=== PATIENT | male | born 1970 | race Caucasian/White ===

== ENCOUNTER 2017-08-23 13:32 | Observation (INO) ==
[2017-08-23] MEDS ORDERED: SODIUM CHLORIDE 0.9% 1,000 ML IV STA (14:49)
[2017-08-23] MEDS ORDERED: ONDANSETRON 4 MG/2 ML VIAL IV STA (14:50)
[2017-08-23] MEDS ORDERED: INSULIN REGULAR 100 UNIT/ML IV STA (14:50)
[2017-08-23] MEDS ORDERED: ONDANSETRON 4 MG/2 ML VIAL ONE (14:53)
[2017-08-23] MEDS ORDERED: INSULIN NPH/REGULAR 70/30 100 UNIT/ML SUBCUT ONE (14:54)
[2017-08-23 14:59] LABS: Basophils # 0.1 10*3/uL (0.0-0.2); Basophils % 0.9 % (0.0-0.8); Eosinophils # 0.1 10*3/uL (0.0-0.87); Hematocrit 52.4 VOL% (42.0-52.0); Hemoglobin 18.2 GM/DL (14.0-18.0); Immature Granulocytes % 0.5 %; Immature Granulocytes Absolute 0.03 #; Lymphocytes # 1.3 10*3/uL (1.4-4.0); Lymphocytes % 22.7 % (21.2-54.2); Mean Corpuscular HGB Conc 34.7 GM/DL (32-36); Mean Corpuscular Hemoglobin 29 PG (27-34); Mean Corpuscular Volume 83.2 FL (87-102); Mean Platelet Volume 11.3 FL (9.6-12.0); Monocytes # 0.9 10*3/uL (0.11-0.8); Monocytes % 15.3 % (1.7-12.7); Neutrophils # 3.5 10*3/uL (1.4-7.4); Neutrophils % 59.6 % (38.7-73.9); Platelet Count 220 T/CUMM (130-400); Red Cell Distribution Width 12.7 % (9.3-17.3); White Blood Count 5.8 T/CUMM (4-12)
[2017-08-23 15:14] LABS: Apearance,Urine Slightly Hazy (Clear); Bilirubin,Urine Negative (Negative); Blood, Urine Negative (Negative); Glucose,Urine (UA) >=500 mg/dL (Negative); Ketones,Urine Negative (Negative); Mucus,Urine Occasional /LPF (Occasional); Nitrite,Urine Negative (Negative); Protein,Urine Negative; RBC,Urine 2 /HPF (0-4); Squamous Epithelial Cell,Urine Occasional /HPF (0-10); Urine Color Yellow (Yellow); Urine Specific Gravity 1.028 (1.001-1.035); Urine Urobilinogen < 2.0 EU/DL (0.2-1.0); WBC,Urine 10 /HPF (0-6)
[2017-08-23 15:28] LABS: Albumin 4.7 G/DL (3.4-5.0); Bilirubin,Total 1.3 MG/DL (0.2-1.0); Calcium 9.6 MG/DL (8.5-10.1); Osmolality,Calculated 278.1 MOS/KG (273-304); Potassium 3.8 MMOL/L (3.5-5.1); Total Protein 9.2 G/DL (6.4-8.3)
[2017-08-23 16:04] LABS: ABG Base Excess -3.9 MMOL/L (-2.5-2.5); ABG HCO3 18.4 MMOL/L (20-26); ABG Oxygen Saturation 92.9 % (95-100); ABG PCO2 27.7 MM HG (35-48); ABG PO2 66.5 MM HG (80-95); ABG TCO2 19.2 MMOL/L (23-27)
[2017-08-23] MEDS ORDERED: GLUCAGON 1 MG VIAL IM PRN (16:46)
[2017-08-23] MEDS ORDERED: traZODone 50 MG TABLET PO PRN (16:46)
[2017-08-23] MEDS ORDERED: DEXTROSE 50% 25 GM/50 ML VIAL IV PRN (16:46)
[2017-08-23] MEDS ORDERED: LOPERAMIDE 2 MG CAPSULE PO PRN (16:49)
[2017-08-23] MEDS ORDERED: ENOXAPARIN 40 MG/0.4 ML SYRINGE SUBCUT SCH (17:00)
[2017-08-23] MEDS ORDERED: cefTRIAXone 2,000 MG in SYRINGE 1 EACH IV ONE (17:00)
[2017-08-23] MEDS: SODIUM CHLORIDE 0.9% 1,000 ML IV SCH (18:00)
[2017-08-23] MEDS: INSULIN NPH/REGULAR 70/30 100 UNIT/ML SUBCUT SCH (18:20)
[2017-08-23] MEDS: ONDANSETRON 4 MG/2 ML VIAL IV PRN ×2 (18:21→22:13)
[2017-08-23] MEDS: INSULIN REGULAR 100 UNIT/ML SUBCUT SCH (22:02)
[2017-08-24] MEDS: SODIUM CHLORIDE 0.9% 1,000 ML IV SCH ×2 (02:31→09:00)
[2017-08-24 05:38] LABS: Basophils % 0.4 % (0.0-0.8); Eosinophils # 0.1 10*3/uL (0.0-0.87); Eosinophils % 2.9 % (0.00-10.9); Hematocrit 44.4 VOL% (42.0-52.0); Hemoglobin 14.9 GM/DL (14.0-18.0); Immature Granulocytes % 0.4 %; Immature Granulocytes Absolute 0.02 #; Lymphocytes # 1.9 10*3/uL (1.4-4.0); Lymphocytes % 39.3 % (21.2-54.2); Mean Corpuscular HGB Conc 33.6 GM/DL (32-36); Mean Corpuscular Hemoglobin 29 PG (27-34); Mean Corpuscular Volume 85.1 FL (87-102); Monocytes # 0.8 10*3/uL (0.11-0.8); Monocytes % 15.8 % (1.7-12.7); Neutrophils % 41.2 % (38.7-73.9); Platelet Count 179 T/CUMM (130-400); Red Blood Count 5.22 MC/CUMM (3.8-5.5); Red Cell Distribution Width 12.6 % (9.3-17.3); White Blood Count 4.9 T/CUMM (4-12)
[2017-08-24 06:21] LABS: Albumin 3.5 G/DL (3.4-5.0); Calcium 8.1 MG/DL (8.5-10.1); Osmolality,Calculated 282.5 MOS/KG (273-304); Potassium 3.3 MMOL/L (3.5-5.1); Risk Ratio 6.25; Total Protein 6.4 G/DL (6.4-8.3); VLDL CHOLESTEROL 102.6 MG/DL
[2017-08-24 06:25] LABS: Eosinophils 3 % (0-10); Hypochromasia Slight; Lymphocytes 36 % (20-55); Platelet Estimate Adequate; Segmented Neutrophils 51 % (50-85); Total Cells Counted 100
[2017-08-24] MEDS: ONDANSETRON 4 MG/2 ML VIAL IV PRN (06:36)
[2017-08-24] MEDS: INSULIN REGULAR 100 UNIT/ML SUBCUT SCH ×2 (08:57→11:37)
[2017-08-24] MEDS: INSULIN NPH/REGULAR 70/30 100 UNIT/ML SUBCUT SCH (08:57)
[2017-08-24 11:32] VITALS: BP 125/82
== END 2017-08-24 12:57 | disposition home or self-care (01) ==
LOC: N.EDINP 13:32 → N.ED 13:32 → N.2E 16:45
PROVIDERS: ADMIT Internal Medicine; ATTEND Internal Medicine

== ENCOUNTER 2020-05-31 17:37 | Inpatient (IN) ==
[~2020-05-31 17:37] MED LIST: ENOXAPARIN 30 MG/0.3 ML SYRINGE SUBCUT ONE; LIDOCAINE 1% 20 ML VIAL MISC INJ ONE; MIDAZOLAM 2 MG/2 ML VIAL IV ONE; PROMETHAZINE 25 MG/1 ML VIAL IV ONE; TICAGRELOR 90 MG TABLET PO ONE; TIROFIBAN 5,000 MCG/100 ML PREMIX IV ONE; fentaNYL 100 MCG/2 ML VIAL IV ONE
[2020-05-31] MEDS ORDERED: TIROFIBAN 5,000 MCG/100 ML PREMIX IV SCH (17:57)
[2020-05-31] MEDS ORDERED: hydrALAZINE 20 MG/1 ML VIAL ONE (18:17)
[2020-05-31] MEDS ORDERED: NITROGLYCERIN SL 0.4 MG TABLET SL PRN (18:26)
[2020-05-31] MEDS ORDERED: ACETAMINOPHEN 325 MG TABLET PO PRN (18:26)
[2020-05-31] MEDS ORDERED: ONDANSETRON 4 MG/2 ML VIAL IV PRN (18:26)
[2020-05-31] MEDS ORDERED: SODIUM CHLORIDE 0.9% 1,000 ML IV SCH (18:30)
[2020-05-31] MEDS ORDERED: DEXTROSE 50% 25 GM/50 ML VIAL IV PRN (18:31)
[2020-05-31] MEDS ORDERED: GLUCAGON 1 MG VIAL IM PRN (18:31)
[2020-05-31] MEDS ORDERED: hydrALAZINE 20 MG/1 ML VIAL IV PRN (19:16)
[2020-05-31 20:03] LABS: Basophils # 0.1 10*3/uL (0.0-0.2); Basophils % 0.5 % (0.0-0.8); Eosinophils % 0.2 % (0.00-10.9); Hematocrit 44.7 VOL% (42.0-52.0); Immature Granulocytes % 0.5 %; Immature Granulocytes Absolute 0.06 #; Lymphocytes # 0.9 10*3/uL (1.4-4.0); Lymphocytes % 7.5 % (21.2-54.2); Mean Corpuscular HGB Conc 33.6 GM/DL (32-36); Mean Corpuscular Volume 86.6 FL (87-102); Mean Platelet Volume 10.8 FL (9.6-12.0); Monocytes % 6.5 % (1.7-12.7); Neutrophils % 84.8 % (38.7-73.9); Platelet Count 158 T/CUMM (130-400); Red Blood Count 5.16 MC/CUMM (3.8-5.5); Red Cell Distribution Width 11.7 % (9.3-17.3); White Blood Count 12.2 T/CUMM (4-12)
[2020-05-31] MEDS: HYDROmorphone 2 MG/1 ML VIAL IV PRN (20:04)
[2020-05-31 20:35] LABS: Troponin I 37.6 NG/ML (0.00-0.045)
[2020-05-31] MEDS: ATORVASTATIN 40 MG TABLET PO SCH (21:07)
[2020-05-31] MEDS: TICAGRELOR 90 MG TABLET PO SCH (21:07)
[2020-05-31] MEDS: METOPROLOL TARTRATE 50 MG TABLET PO SCH (21:07)
[2020-05-31] MEDS: INSULIN REGULAR 100 UNIT/ML SUBCUT SCH (21:18)
[2020-05-31 22:32] LABS: CKMB % 6.8 %
[2020-05-31 22:36] LABS: Troponin I 76.7 NG/ML (0.00-0.045)
[2020-06-01] MEDS: HYDROmorphone 2 MG/1 ML VIAL IV PRN ×3 (00:21→08:36)
[2020-06-01 01:21] LABS: CKMB % 7.4 %
[2020-06-01 05:21] LABS: Basophils # 0.1 10*3/uL (0.0-0.2); Basophils % 0.5 % (0.0-0.8); Eosinophils % 0.3 % (0.00-10.9); Hematocrit 42.6 VOL% (42.0-52.0); Hemoglobin 14.2 GM/DL (14.0-18.0); Immature Granulocytes % 0.5 %; Immature Granulocytes Absolute 0.05 #; Lymphocytes # 1.6 10*3/uL (1.4-4.0); Lymphocytes % 17.3 % (21.2-54.2); Mean Corpuscular HGB Conc 33.3 GM/DL (32-36); Mean Corpuscular Volume 86.8 FL (87-102); Mean Platelet Volume 10.7 FL (9.6-12.0); Monocytes % 11.7 % (1.7-12.7); Neutrophils % 69.7 % (38.7-73.9); Platelet Count 184 T/CUMM (130-400); Red Blood Count 4.91 MC/CUMM (3.8-5.5); White Blood Count 9.1 T/CUMM (4-12)
[2020-06-01 06:13] LABS: CKMB % 6.8 %; Osmolality,Calculated 283.2 MOS/KG (273-304); Potassium 4.2 MMOL/L (3.5-5.1); Risk Ratio 7.52; VLDL CHOLESTEROL 100.8 MG/DL
[2020-06-01] MEDS: ASPIRIN EC 81 MG TABLET PO SCH (08:35)
[2020-06-01] MEDS: METOPROLOL TARTRATE 50 MG TABLET PO SCH ×2 (08:35→22:00)
[2020-06-01] MEDS: INSULIN REGULAR 100 UNIT/ML SUBCUT SCH ×4 (08:35→22:27)
[2020-06-01] MEDS: lisinopriL 10 MG TABLET PO SCH (08:35)
[2020-06-01] MEDS: TICAGRELOR 90 MG TABLET PO SCH ×2 (08:35→22:00)
[2020-06-01] MEDS ORDERED: GLUCAGON 1 MG VIAL IM PRN (15:02)
[2020-06-01] MEDS ORDERED: DEXTROSE 50% 25 GM/50 ML VIAL IV PRN (15:02)
[2020-06-01] MEDS ORDERED: diphenhydrAMINE CAP 25 MG CAPSULE PO PRN (15:34)
[2020-06-01] MEDS ORDERED: MAGNESIUM HYDROXIDE SUSP 30 ML UDCUP PO PRN (15:35)
[2020-06-01 19:20] LABS: Barbiturates Screen,Urine Negative (Negative); Benzodiazepines Screen,Urine Positive (Negative); Cannabinoid Screen,Urine Negative (Negative); Opiate Screen,Urine Positive (Negative); Phencyclidine Screen,Urine Negative (Negative)
[2020-06-01] MEDS: ATORVASTATIN 40 MG TABLET PO SCH (22:00)
[2020-06-01] MEDS: ASCORBIC ACID 500 MG TABLET PO SCH (22:00)
[2020-06-01] MEDS: ZALEPLON 5 MG CAPSULE PO PRN (22:30)
[2020-06-02 07:21] LABS: Basophils # 0.1 10*3/uL (0.0-0.2); Basophils % 0.7 % (0.0-0.8); Eosinophils # 0.1 10*3/uL (0.0-0.87); Eosinophils % 1.9 % (0.00-10.9); Hematocrit 38.7 VOL% (42.0-52.0); Hemoglobin 12.5 GM/DL (14.0-18.0); Immature Granulocytes % 0.6 %; Immature Granulocytes Absolute 0.04 #; Lymphocytes # 1.8 10*3/uL (1.4-4.0); Lymphocytes % 27.4 % (21.2-54.2); Mean Corpuscular HGB Conc 32.3 GM/DL (32-36); Mean Corpuscular Volume 88.4 FL (87-102); Monocytes % 12.5 % (1.7-12.7); Neutrophils % 56.9 % (38.7-73.9); Platelet Count 145 T/CUMM (130-400); Red Blood Count 4.38 MC/CUMM (3.8-5.5); Red Cell Distribution Width 12.2 % (9.3-17.3); White Blood Count 6.7 T/CUMM (4-12)
[2020-06-02 07:30] LABS: PT Patient Result 10.4 SECS (9.8-11.9)
[2020-06-02 07:43] LABS: Calcium 7.9 MG/DL (8.5-10.1); Osmolality,Calculated 286.4 MOS/KG (273-304); Potassium 3.8 MMOL/L (3.5-5.1)
[2020-06-02] MEDS: ASCORBIC ACID 500 MG TABLET PO SCH ×2 (08:29→21:41)
[2020-06-02] MEDS: ASPIRIN EC 81 MG TABLET PO SCH (08:29)
[2020-06-02] MEDS: lisinopriL 10 MG TABLET PO SCH (08:29)
[2020-06-02] MEDS: TICAGRELOR 90 MG TABLET PO SCH ×2 (08:30→21:41)
[2020-06-02] MEDS: INSULIN REGULAR 100 UNIT/ML SUBCUT SCH ×4 (08:31→21:41)
[2020-06-02] MEDS: METOPROLOL TARTRATE 50 MG TABLET PO SCH ×2 (08:31→21:41)
[2020-06-02] MEDS ORDERED: POTASSIUM CHLORIDE 20 MEQ TABLET PO ONE (10:52)
[2020-06-02] MEDS ORDERED: MAGNESIUM SULF RIDER 2 GM in PREMIX 1 EACH IV ONE (10:52)
[2020-06-02] MEDS: ATORVASTATIN 40 MG TABLET PO SCH (21:41)
[2020-06-02] MEDS: ZALEPLON 5 MG CAPSULE PO PRN (21:47)
[2020-06-03 05:41] LABS: Basophils # 0.1 10*3/uL (0.0-0.2); Basophils % 1.1 % (0.0-0.8); Eosinophils # 0.2 10*3/uL (0.0-0.87); Eosinophils % 3.1 % (0.00-10.9); Hematocrit 39.1 VOL% (42.0-52.0); Hemoglobin 12.7 GM/DL (14.0-18.0); Immature Granulocytes % 0.6 %; Immature Granulocytes Absolute 0.04 #; Lymphocytes % 30.4 % (21.2-54.2); Mean Corpuscular HGB Conc 32.5 GM/DL (32-36); Mean Corpuscular Volume 89.1 FL (87-102); Monocytes % 13.2 % (1.7-12.7); Neutrophils % 51.6 % (38.7-73.9); Platelet Count 145 T/CUMM (130-400); Red Blood Count 4.39 MC/CUMM (3.8-5.5); Red Cell Distribution Width 12.2 % (9.3-17.3); White Blood Count 6.4 T/CUMM (4-12)
[2020-06-03 05:59] LABS: Calcium 8.3 MG/DL (8.5-10.1); Osmolality,Calculated 280.7 MOS/KG (273-304); Potassium 3.9 MMOL/L (3.5-5.1)
[2020-06-03] MEDS: TICAGRELOR 90 MG TABLET PO SCH ×2 (08:04→20:53)
[2020-06-03] MEDS: INSULIN REGULAR 100 UNIT/ML SUBCUT SCH ×4 (08:04→20:53)
[2020-06-03] MEDS: ASPIRIN EC 81 MG TABLET PO SCH (08:04)
[2020-06-03] MEDS: lisinopriL 10 MG TABLET PO SCH (08:05)
[2020-06-03] MEDS: ASCORBIC ACID 500 MG TABLET PO SCH ×2 (08:05→20:53)
[2020-06-03] MEDS: METOPROLOL TARTRATE 50 MG TABLET PO SCH ×2 (08:05→20:52)
[2020-06-03] MEDS ORDERED: MAGNESIUM SULF RIDER 2 GM in PREMIX 1 EACH IV PRN (10:37)
[2020-06-03] MEDS ORDERED: MAGNESIUM SULF RIDER 4 GM in PREMIX 1 EACH IV PRN (10:37)
[2020-06-03] MEDS ORDERED: POTASSIUM CHLORIDE 20 MEQ TABLET PO ONE (10:37)
[2020-06-03] MEDS: ZALEPLON 5 MG CAPSULE PO PRN (20:53)
[2020-06-03] MEDS: ATORVASTATIN 40 MG TABLET PO SCH (20:53)
[2020-06-03] MEDS: INSULIN GLARGINE 100 UNIT/ML SUBCUT SCH (20:54)
[2020-06-03] MEDS ORDERED: HEPARIN DRIP 25,000 UNITS/500 ML PREMIX IV SCH (23:00)
[2020-06-04 05:04] LABS: Basophils # 0.1 10*3/uL (0.0-0.2); Eosinophils # 0.2 10*3/uL (0.0-0.87); Eosinophils % 2.9 % (0.00-10.9); Hematocrit 40.6 VOL% (42.0-52.0); Hemoglobin 13.3 GM/DL (14.0-18.0); Immature Granulocytes % 0.5 %; Immature Granulocytes Absolute 0.03 #; Lymphocytes # 1.3 10*3/uL (1.4-4.0); Lymphocytes % 22.9 % (21.2-54.2); Mean Corpuscular HGB Conc 32.8 GM/DL (32-36); Mean Corpuscular Volume 87.7 FL (87-102); Mean Platelet Volume 11.6 FL (9.6-12.0); Monocytes % 13.3 % (1.7-12.7); Neutrophils % 59.4 % (38.7-73.9); Platelet Count 141 T/CUMM (130-400); Red Blood Count 4.63 MC/CUMM (3.8-5.5); Red Cell Distribution Width 11.9 % (9.3-17.3); White Blood Count 5.8 T/CUMM (4-12)
[2020-06-04 05:31] LABS: Calcium 8.5 MG/DL (8.5-10.1); Osmolality,Calculated 281.7 MOS/KG (273-304); Potassium 3.9 MMOL/L (3.5-5.1)
[2020-06-04] MEDS: ASCORBIC ACID 500 MG TABLET PO SCH ×2 (08:25→20:15)
[2020-06-04] MEDS: METOPROLOL TARTRATE 50 MG TABLET PO SCH ×2 (08:25→20:16)
[2020-06-04] MEDS: lisinopriL 10 MG TABLET PO SCH (08:25)
[2020-06-04] MEDS: ASPIRIN EC 81 MG TABLET PO SCH (08:25)
[2020-06-04] MEDS: INSULIN REGULAR 100 UNIT/ML SUBCUT SCH ×4 (08:25→20:18)
[2020-06-04] MEDS: HEPARIN DRIP 25,000 UNITS/500 ML PREMIX IV SCH (08:27)
[2020-06-04] MEDS ORDERED: MAGNESIUM SULF RIDER 2 GM in PREMIX 1 EACH IV ONE (10:56)
[2020-06-04] MEDS ORDERED: POTASSIUM CHLORIDE 20 MEQ TABLET PO ONE (10:56)
[2020-06-04] MEDS: ATORVASTATIN 40 MG TABLET PO SCH (20:15)
[2020-06-04] MEDS: INSULIN GLARGINE 100 UNIT/ML SUBCUT SCH (20:16)
[2020-06-05 06:36] LABS: Basophils # 0.1 10*3/uL (0.0-0.2); Basophils % 0.9 % (0.0-0.8); Eosinophils # 0.1 10*3/uL (0.0-0.87); Eosinophils % 1.3 % (0.00-10.9); Immature Granulocytes % 0.4 %; Immature Granulocytes Absolute 0.02 #; Lymphocytes # 1.4 10*3/uL (1.4-4.0); Lymphocytes % 25.9 % (21.2-54.2); Mean Corpuscular HGB Conc 32.5 GM/DL (32-36); Mean Corpuscular Volume 87.5 FL (87-102); Mean Platelet Volume 11.7 FL (9.6-12.0); Monocytes % 17.6 % (1.7-12.7); Neutrophils % 53.9 % (38.7-73.9); Platelet Count 132 T/CUMM (130-400); Red Blood Count 4.57 MC/CUMM (3.8-5.5); Red Cell Distribution Width 11.9 % (9.3-17.3); White Blood Count 5.5 T/CUMM (4-12)
[2020-06-05 06:45] LABS: Calcium 8.2 MG/DL (8.5-10.1); Osmolality,Calculated 269.4 MOS/KG (273-304)
[2020-06-05] MEDS: METOPROLOL TARTRATE 50 MG TABLET PO SCH ×2 (08:30→20:21)
[2020-06-05] MEDS: ASCORBIC ACID 500 MG TABLET PO SCH ×2 (08:31→20:21)
[2020-06-05] MEDS: lisinopriL 10 MG TABLET PO SCH (08:32)
[2020-06-05] MEDS: INSULIN REGULAR 100 UNIT/ML SUBCUT SCH ×4 (08:32→20:24)
[2020-06-05] MEDS: ASPIRIN EC 81 MG TABLET PO SCH (08:32)
[2020-06-05 08:48] LABS: Eosinophils 1 % (0-10); Lymphocytes 30 % (20-55); Platelet Estimate Adequate; Segmented Neutrophils 58 % (50-85); Total Cells Counted 100
[2020-06-05] MEDS: HEPARIN DRIP 25,000 UNITS/500 ML PREMIX IV SCH (09:21)
[2020-06-05] MEDS ORDERED: cephALEXin 500 MG CAPSULE PO SCH (11:00)
[2020-06-05] MEDS ORDERED: ALBUTEROL/IPRATROPIUM 3 ML NEB RESP TX PRN (11:57)
[2020-06-05] MEDS: cefTRIAXone 1,000 MG in SYRINGE 1 EACH IV SCH (13:09)
[2020-06-05] MEDS: ATORVASTATIN 40 MG TABLET PO SCH (20:21)
[2020-06-05] MEDS ORDERED: INSULIN NPH 100 UNIT/ML SUBCUT ONE (21:00)
[2020-06-06 05:45] LABS: Basophils # 0.1 10*3/uL (0.0-0.2); Basophils % 1.3 % (0.0-0.8); Eosinophils # 0.1 10*3/uL (0.0-0.87); Hematocrit 38.7 VOL% (42.0-52.0); Hemoglobin 12.7 GM/DL (14.0-18.0); Immature Granulocytes % 0.4 %; Immature Granulocytes Absolute 0.02 #; Lymphocytes # 1.5 10*3/uL (1.4-4.0); Lymphocytes % 33.9 % (21.2-54.2); Mean Corpuscular HGB Conc 32.8 GM/DL (32-36); Mean Corpuscular Volume 87.8 FL (87-102); Mean Platelet Volume 11.7 FL (9.6-12.0); Monocytes % 23.2 % (1.7-12.7); Neutrophils % 39.2 % (38.7-73.9); Platelet Count 131 T/CUMM (130-400); Red Blood Count 4.41 MC/CUMM (3.8-5.5); Red Cell Distribution Width 11.8 % (9.3-17.3); White Blood Count 4.5 T/CUMM (4-12)
[2020-06-06 06:15] LABS: Calcium 8.3 MG/DL (8.5-10.1); Osmolality,Calculated 267.2 MOS/KG (273-304)
[2020-06-06 06:22] LABS: Alanine Aminotransferase 30 U/L (16-61); Alkaline Phosphatase 69 U/L (45-117); Aspartate Amino Transferase 26 U/L (0-37); Blood Urea Nitrogen 12 MG/DL (7-18); Calcium 8.3 MG/DL (8.5-10.1); Carbon Dioxide 25 MMOL/L (21-32); Estimated Glom Filtration Rate 124 ML/MIN; Glucose 103 MG/DL (74-106); Osmolality,Calculated 269.1 MOS/KG (273-304); Sodium 135 MMOL/L (136-145); Total Protein 6.4 G/DL (6.4-8.2)
[2020-06-06 07:06] LABS: Atypical Lymphocytes Few; Eosinophils 3 % (0-10); Lymphocytes 24 % (20-55); Platelet Estimate Adequate; Segmented Neutrophils 57 % (50-85); Total Cells Counted 100
[2020-06-06 07:07] LABS: Ovalocytes Few
[2020-06-06 07:08] LABS: Polychromasia Slight
[2020-06-06] MEDS: ASCORBIC ACID 500 MG TABLET PO SCH ×2 (08:29→20:59)
[2020-06-06] MEDS: METOPROLOL TARTRATE 50 MG TABLET PO SCH ×2 (08:29→20:59)
[2020-06-06] MEDS: ASPIRIN EC 81 MG TABLET PO SCH (08:29)
[2020-06-06] MEDS: lisinopriL 10 MG TABLET PO SCH (08:29)
[2020-06-06] MEDS: INSULIN ASPART PROTAMINE/ASPART 70/30 100 UNIT/ML SUBCUT SCH (08:34)
[2020-06-06] MEDS: SODIUM CHLORIDE 0.9% 1,000 ML IV SCH (08:42)
[2020-06-06 09:10] LABS: ABG Base Excess 1.3 MMOL/L (-2.5-2.5); ABG HCO3 25.5 MMOL/L (20-26); ABG Oxygen Saturation 95.1 % (95-100); ABG PH 7.425 (7.35-7.45); ABG PO2 75.1 MM HG (80-95); ABG TCO2 22.6 MMOL/L (23-27); Allen Test Positive; Pt O2 Delivery Device Room Air
[2020-06-06] MEDS: INSULIN REGULAR 100 UNIT/ML SUBCUT SCH ×4 (09:41→20:54)
[2020-06-06] MEDS: HEPARIN DRIP 25,000 UNITS/500 ML PREMIX IV SCH ×3 (09:41→15:54)
[2020-06-06] MEDS: CHLORHEXIDINE 0.12% ORAL RINSE 60 ML BOTTLE SWISH/SPIT SCH ×2 (09:41→21:32)
[2020-06-06] MEDS: cefTRIAXone 1,000 MG in SYRINGE 1 EACH IV SCH (12:01)
[2020-06-06] MEDS: CHLORHEXIDINE 4% SOLN 118 ML BOTTLE TOP SCH ×2 (14:54→21:10)
[2020-06-06] MEDS ORDERED: INSULIN ASPART PROTAMINE/ASPART 70/30 100 UNIT/ML SUBCUT SCH (16:30)
[2020-06-06] MEDS: ZALEPLON 5 MG CAPSULE PO PRN (20:59)
[2020-06-06] MEDS: ATORVASTATIN 40 MG TABLET PO SCH (20:59)
[2020-06-07] MEDS ORDERED: PAPAVERINE 60 MG/2 ML VIAL ONE (04:25)
[2020-06-07] MEDS ORDERED: VANCOMYCIN 500 MG VIAL ONE (04:26)
[2020-06-07] MEDS ORDERED: VANCOMYCIN 1,000 MG VIAL ONE (04:26)
[2020-06-07] MEDS: CHLORHEXIDINE 0.12% ORAL RINSE 60 ML BOTTLE SWISH/SPIT SCH ×3 (04:29→21:08)
[2020-06-07] MEDS: CHLORHEXIDINE 4% SOLN 118 ML BOTTLE TOP SCH ×2 (04:29→09:00)
[2020-06-07] MEDS ORDERED: CEFUROXIME INJ 1,500 MG in SYRINGE 1 EACH IV ONE (05:00)
[2020-06-07] MEDS ORDERED: MIDAZOLAM 10 MG/2 ML VIAL ONE ×4 (05:51→08:03)
[2020-06-07] MEDS ORDERED: SODIUM CHLORIDE 0.9% 1,000 ML IV ONE (05:51)
[2020-06-07] MEDS ORDERED: SODIUM CHLORIDE 0.9% 250 ML IV ONE (05:51)
[2020-06-07] MEDS ORDERED: LACTATED RINGERS 1,000 ML IV ONE (05:51)
[2020-06-07] MEDS ORDERED: SEVOFLURANE 1 UNIT/15 MINUTE INH ONE ×15 (05:51→10:56)
[2020-06-07] MEDS ORDERED: ePHEDrine 50 MG/ML VIAL ONE (05:51)
[2020-06-07] MEDS ORDERED: VECURONIUM 10 MG VIAL IV ONE ×4 (05:52)
[2020-06-07] MEDS ORDERED: CALCIUM CHLORIDE 1,000 MG/10 ML VIAL IV ONE ×2 (05:52→10:14)
[2020-06-07] MEDS ORDERED: SUFentanil 250 MCG/5 ML AMP ONE ×2 (05:52→07:39)
[2020-06-07] MEDS ORDERED: ETOMIDATE 40 MG/20 ML VIAL IV ONE (05:52)
[2020-06-07] MEDS ORDERED: AMINOCAPROIC ACID 5,000 MG/20 ML VIAL ONE ×4 (05:52→05:53)
[2020-06-07] MEDS ORDERED: LIDOCAINE 2% 5 ML VIAL ONE ×2 (05:52→10:33)
[2020-06-07] MEDS ORDERED: MINERAL OIL/PETROLATUM OPH OINT 3.5 GM TUBE ONE (05:52)
[2020-06-07] MEDS ORDERED: FUROSEMIDE 20 MG/2 ML VIAL ONE ×3 (06:14→10:34)
[2020-06-07] MEDS: INSULIN ASPART PROTAMINE/ASPART 70/30 100 UNIT/ML SUBCUT SCH (07:30)
[2020-06-07] MEDS: INSULIN REGULAR 100 UNIT/ML SUBCUT SCH (07:30)
[2020-06-07 07:32] LABS: ABG Base Excess 1.7 MMOL/L (-2.5-2.5); ABG HCO3 25.9 MMOL/L (20-26); ABG PCO2 38.4 MM HG (35-48); ABG PH 7.435 (7.35-7.45); ABG TCO2 22.7 MMOL/L (23-27); Glucose Heart Surgery 219 MG/DL (74-106); Hematocrit Heart Surgery 37.5 PERCENT (42-52); Hemoglobin Heart Surgery 12.2 G/DL (14.0-18.0); Ionized Calcium Arterial 1.18 MMOL/L (1.21-1.46); PCO2 Patient Temp Arterial 38.4 MMHG; PH Patient Temp Arterial 7.435; Patient Temperature 37 CELCIUS; Potassium Heart/CVR 4.6 MMOL/L (3.5-5.1); Sodium Heart/CVR 136 MMOL/L (135-145)
[2020-06-07] MEDS ORDERED: PHENYLEPHRINE DRIP 20 MG/250 ML PREMIX IV ONE (07:54)
[2020-06-07] MEDS ORDERED: HEPARIN/NACL 0.9% 2 UNITS/ML 500 ML IV ONE (07:54)
[2020-06-07] MEDS ORDERED: NITROGLYCERIN DRIP 50 MG/250 ML BOTTLE IV ONE ×2 (07:54→09:04)
[2020-06-07] MEDS ORDERED: diphenhydrAMINE 50 MG/1 ML VIAL ONE (08:02)
[2020-06-07] MEDS: SODIUM CHLORIDE 0.9% 1,000 ML IV SCH (08:30)
[2020-06-07 08:45] LABS: Bilirubin,Urine Negative (Negative); Blood, Urine Negative (Negative); Glucose,Urine (UA) Negative (Negative); Ketones,Urine Negative (Negative); Mucus,Urine Occasional /LPF (Occasional); Nitrite,Urine Negative (Negative); Protein,Urine Negative; RBC,Urine <1 /HPF (0-4); Urine Appearance CLEAR (Clear); Urine Color Straw (Yellow); Urine Specific Gravity 1.005 (1.001-1.035); Urine Urobilinogen < 2.0 EU/DL (0.2-1.0); WBC,Urine 1 /HPF (0-6)
[2020-06-07 08:57] LABS: Hemoglobin Heart Surgery 9.9 G/DL (14.0-18.0); PCO2 Patient Temp Venous 39.4 MM HG; PH Patient Temp Venous 7.479; PO2 Patient Temp Venous 36.2 MM HG; Potassium Heart/CVR 5.4 MMOL/L (3.5-5.1); VBG Base Excess 4.7 MEQ/L (0-4); VBG HCO3 29.1 MEQ/L (24-28); VBG Oxygen Saturation 74.8 %; VBG PH 7.449; VBG PO2 41.7 MMHG (17-40); VBG Total CO2 30.5 MMOL/L
[2020-06-07] MEDS: ASPIRIN EC 81 MG TABLET PO SCH (09:00)
[2020-06-07] MEDS: METOPROLOL TARTRATE 50 MG TABLET PO SCH (09:00)
[2020-06-07] MEDS: ASCORBIC ACID 500 MG TABLET PO SCH (09:00)
[2020-06-07] MEDS: lisinopriL 10 MG TABLET PO SCH (09:00)
[2020-06-07] MEDS ORDERED: FAMOTIDINE 20 MG/2 ML VIAL IV ONE (09:04)
[2020-06-07 09:26] LABS: Hematocrit Heart Surgery 32.1 PERCENT (42-52); Hemoglobin Heart Surgery 10.4 G/DL (14.0-18.0); PCO2 Patient Temp Venous 36.8 MM HG; PH Patient Temp Venous 7.46; PO2 Patient Temp Venous 39.1 MM HG; Potassium Heart/CVR 4.9 MMOL/L (3.5-5.1); VBG Base Excess 2.5 MEQ/L (0-4); VBG HCO3 26.4 MEQ/L (24-28); VBG Oxygen Saturation 81.7 %; VBG PCO2 42.6 MMHG (41-51); VBG PH 7.416; VBG PO2 48.1 MMHG (17-40); VBG Total CO2 24.8 MMOL/L
[2020-06-07] MEDS ORDERED: ESMOLOL 100 MG/10 ML VIAL IV ONE (09:44)
[2020-06-07 09:57] LABS: Hematocrit Heart Surgery 31.4 PERCENT (42-52); Hemoglobin Heart Surgery 10.2 G/DL (14.0-18.0); PCO2 Patient Temp Venous 38.6 MM HG; PH Patient Temp Venous 7.449; PO2 Patient Temp Venous 40.1 MM HG; Potassium Heart/CVR 4.9 MMOL/L (3.5-5.1); VBG Base Excess 2.7 MEQ/L (0-4); VBG HCO3 26.4 MEQ/L (24-28); VBG Oxygen Saturation 74.4 %; VBG PCO2 38.6 MMHG (41-51); VBG PH 7.449; VBG PO2 40.1 MMHG (17-40); VBG Total CO2 24.4 MMOL/L
[2020-06-07] MEDS ORDERED: MANNITOL 100 GM/500 ML BAG IV ONE (10:33)
[2020-06-07] MEDS ORDERED: MAGNESIUM SULFATE 5 GM/10 ML VIAL IV ONE (10:33)
[2020-06-07] MEDS ORDERED: methylPREDNISolone SOD SUC 1,000 MG/8 ML VIAL ONE (10:33)
[2020-06-07] MEDS ORDERED: ALBUMIN 25% 25 GM/100 ML VIAL IV ONE (10:33)
[2020-06-07] MEDS ORDERED: DEXTROSE 5% KCL 20 MEQ 20 MEQ/1,000 ML BAG IV ONE (10:33)
[2020-06-07] MEDS ORDERED: PROTAMINE SULFATE 50 MG/5 ML VIAL IV ONE (10:34)
[2020-06-07] MEDS ORDERED: PROTAMINE SULFATE 250 MG/25 ML VIAL IV ONE (10:34)
[2020-06-07] MEDS ORDERED: SODIUM BICARBONATE 50 MEQ/50 ML VIAL IV ONE ×2 (10:34→10:51)
[2020-06-07] MEDS ORDERED: HEPARIN 10,000 UNIT/10 ML VIAL ONE (10:34)
[2020-06-07 10:38] LABS: ABG Base Excess 2.4 MMOL/L (-2.5-2.5); ABG HCO3 26.6 MMOL/L (20-26); ABG PCO2 42.1 MM HG (35-48); ABG PH 7.418 (7.35-7.45); ABG TCO2 24.6 MMOL/L (23-27); Glucose Heart Surgery 285 MG/DL (74-106); Hematocrit Heart Surgery 31.6 PERCENT (42-52); Hemoglobin Heart Surgery 10.2 G/DL (14.0-18.0); Ionized Calcium Arterial 1.25 MMOL/L (1.21-1.46); PCO2 Patient Temp Arterial 42.1 MMHG; PH Patient Temp Arterial 7.418; Patient Temperature 37 CELCIUS; Potassium Heart/CVR 4.1 MMOL/L (3.5-5.1); Sodium Heart/CVR 133 MMOL/L (135-145)
[2020-06-07] MEDS ORDERED: NITROPRUSSIDE 50 MG/2 ML VIAL ONE (10:51)
[2020-06-07] MEDS ORDERED: POTASSIUM CHLORIDE RIDER 100 ML IV ONE ×2 (10:51→11:51)
[2020-06-07] MEDS ORDERED: CALCIUM CHLORIDE 1,000 MG/10 ML SYRINGE IV ONE (10:51)
[2020-06-07] MEDS ORDERED: PHENYLEPHRINE DRIP 40 MG/250 ML PREMIX IV ONE (10:53)
[2020-06-07] MEDS: SODIUM CHLORIDE 0.45% 1,000 ML IV SCH (11:10)
[2020-06-07] MEDS ORDERED: MIDAZOLAM 2 MG/2 ML VIAL ONE (11:23)
[2020-06-07] MEDS ORDERED: MORPHINE 4 MG/1 ML VIAL ONE (11:24)
[2020-06-07] MEDS ORDERED: MIDAZOLAM 2 MG/2 ML VIAL IV PRN (11:27)
[2020-06-07] MEDS ORDERED: MIDAZOLAM 10 MG/2 ML VIAL IV PRN (11:27)
[2020-06-07] MEDS ORDERED: DEXTROSE 50% 25 GM/50 ML VIAL IV PRN ×2 (11:27)
[2020-06-07] MEDS ORDERED: NITROPRUSSIDE 100 MG in DEXTROSE 5% 250 ML IV PRN (11:27)
[2020-06-07] MEDS ORDERED: SODIUM CHLORIDE 0.45% 1,000 ML IV SCH (11:27)
[2020-06-07] MEDS ORDERED: MAGNESIUM SULF RIDER 4 GM in PREMIX 1 EACH IV PRN (11:27)
[2020-06-07] MEDS ORDERED: INSULIN REGULAR 100 UNIT/ML IV PRN (11:27)
[2020-06-07] MEDS ORDERED: ONDANSETRON 4 MG/2 ML VIAL IV PRN (11:27)
[2020-06-07] MEDS ORDERED: CHLORHEXIDINE 4% SOLN 118 ML BOTTLE TOP PRN (11:27)
[2020-06-07] MEDS ORDERED: INSULIN REGULAR 100 UNIT/ML IV ONE (11:27)
[2020-06-07] MEDS ORDERED: CALCIUM CHLORIDE 1,000 MG/10 ML SYRINGE IV PRN (11:27)
[2020-06-07] MEDS ORDERED: VECURONIUM 10 MG VIAL IV PRN ×2 (11:27)
[2020-06-07] MEDS ORDERED: MAGNESIUM SULF RIDER 2 GM in PREMIX 1 EACH IV PRN (11:27)
[2020-06-07] MEDS ORDERED: ACETAMINOPHEN 650 MG SUPP RECTAL PRN (11:27)
[2020-06-07] MEDS ORDERED: PHENYLEPHRINE DRIP 40 MG/250 ML PREMIX IV PRN (11:27)
[2020-06-07] MEDS ORDERED: POTASSIUM CHLORIDE RIDER 10 MEQ in PREMIX 1 EACH IV PRN (11:27)
[2020-06-07 11:42] LABS: Basophils % 0.4 % (0.0-0.8); Eosinophils # 0.1 10*3/uL (0.0-0.87); Eosinophils % 1.3 % (0.00-10.9); Hematocrit 34.4 VOL% (42.0-52.0); Hemoglobin 11.2 GM/DL (14.0-18.0); Immature Granulocytes % 0.6 %; Immature Granulocytes Absolute 0.03 #; Lymphocytes # 0.5 10*3/uL (1.4-4.0); Lymphocytes % 11.3 % (21.2-54.2); Mean Corpuscular HGB Conc 32.6 GM/DL (32-36); Mean Corpuscular Volume 87.3 FL (87-102); Mean Platelet Volume 10.8 FL (9.6-12.0); Monocytes % 6.8 % (1.7-12.7); Neutrophils % 79.6 % (38.7-73.9); Platelet Count 138 T/CUMM (130-400); Red Blood Count 3.94 MC/CUMM (3.8-5.5); Red Cell Distribution Width 11.8 % (9.3-17.3); White Blood Count 4.7 T/CUMM (4-12)
[2020-06-07 11:43] LABS: ABG Base Excess 4.3 MMOL/L (-2.5-2.5); ABG HCO3 28.2 MMOL/L (20-26); ABG Oxygen Saturation 94.8 % (95-100); ABG PCO2 40.6 MM HG (35-48); ABG PH 7.455 (7.35-7.45); ABG TCO2 25.3 MMOL/L (23-27); Glucose Heart Surgery 292 MG/DL (74-106); Hematocrit Heart Surgery 35.9 PERCENT (42-52); Hemoglobin Heart Surgery 11.6 G/DL (14.0-18.0); Potassium Heart/CVR 3.4 MMOL/L (3.5-5.1)
[2020-06-07] MEDS: POTASSIUM CHLORIDE RIDER 20 MEQ in PREMIX 1 EACH IV PRN ×4 (11:50→16:05)
[2020-06-07 11:56] LABS: INR 1.1; Partial Thromboplastin Time 27.9 SECS (23.9-33.8)
[2020-06-07 12:05] LABS: CKMB % 3.4 %
[2020-06-07 12:11] LABS: Troponin I 4.23 NG/ML (0.00-0.045)
[2020-06-07 12:21] LABS: Albumin 3.3 G/DL (3.4-5.0); Band Neutrophils 2 % (0-10); Bilirubin,Total 0.8 MG/DL (0.2-1.0); Calcium 8.3 MG/DL (8.5-10.1); Eosinophils 1 % (0-10); Hypochromasia Slight; Lymphocytes 5 % (20-55); Microcytosis Slight; Osmolality,Calculated 281.8 MOS/KG (273-304); Platelet Estimate Normal; Potassium 3.5 MMOL/L (3.5-5.1); Segmented Neutrophils 86 % (50-85); Total Cells Counted 100
[2020-06-07] MEDS: ALBUMIN 5% 12.5 GM in PREMIX 1 EACH IV PRN ×3 (13:40→19:49)
[2020-06-07] MEDS: INSULIN REGULAR DRIP 100 ML IV SCH (13:45)
[2020-06-07 13:49] LABS: ABG Base Excess 2.7 MMOL/L (-2.5-2.5); ABG HCO3 26.8 MMOL/L (20-26); ABG Oxygen Saturation 98.8 % (95-100); ABG PCO2 42.7 MM HG (35-48); ABG PH 7.417 (7.35-7.45); ABG TCO2 24.2 MMOL/L (23-27); Glucose Heart Surgery 406 MG/DL (74-106); Hematocrit Heart Surgery 38.1 PERCENT (42-52); Hemoglobin Heart Surgery 12.4 G/DL (14.0-18.0); Potassium Heart/CVR 4.3 MMOL/L (3.5-5.1)
[2020-06-07 14:31] LABS: ABG Base Excess 1.3 MMOL/L (-2.5-2.5); ABG HCO3 25.6 MMOL/L (20-26); ABG Oxygen Saturation 99.1 % (95-100); ABG PCO2 40.1 MM HG (35-48); ABG PH 7.417 (7.35-7.45); ABG TCO2 22.9 MMOL/L (23-27); Glucose Heart Surgery 388 MG/DL (74-106); Hematocrit Heart Surgery 36.1 PERCENT (42-52); Hemoglobin Heart Surgery 11.7 G/DL (14.0-18.0); Potassium Heart/CVR 4.7 MMOL/L (3.5-5.1)
[2020-06-07 15:47] LABS: ABG Base Excess 1.3 MMOL/L (-2.5-2.5); ABG HCO3 25.6 MMOL/L (20-26); ABG Oxygen Saturation 98.5 % (95-100); ABG PCO2 40.7 MM HG (35-48); ABG PH 7.412 (7.35-7.45); ABG TCO2 23.1 MMOL/L (23-27); Glucose Heart Surgery 340 MG/DL (74-106); Hematocrit Heart Surgery 35.8 PERCENT (42-52); Hemoglobin Heart Surgery 11.6 G/DL (14.0-18.0); Potassium Heart/CVR 4.1 MMOL/L (3.5-5.1)
[2020-06-07] MEDS: MORPHINE 4 MG/1 ML VIAL IV PRN ×3 (16:13→23:07)
[2020-06-07] MEDS: KETOROLAC 30 MG/1 ML VIAL IV SCH ×2 (16:35→23:07)
[2020-06-07] MEDS ORDERED: NICOTINE 21 MG/24 HR PATCH TRANSDERM SCH (17:00)
[2020-06-07] MEDS: NICOTINE 14 MG/24 HR PATCH TRANSDERM SCH (17:30)
[2020-06-07 18:13] LABS: ABG Base Excess 2.3 MMOL/L (-2.5-2.5); ABG HCO3 26.4 MMOL/L (20-26); ABG Oxygen Saturation 97.3 % (95-100); ABG PCO2 39.4 MM HG (35-48); ABG PH 7.436 (7.35-7.45); ABG PO2 93.4 MM HG (80-95); ABG TCO2 23.6 MMOL/L (23-27); Glucose Heart Surgery 221 MG/DL (74-106); Hematocrit Heart Surgery 35.5 PERCENT (42-52); Hemoglobin Heart Surgery 11.5 G/DL (14.0-18.0); Potassium Heart/CVR 4.3 MMOL/L (3.5-5.1)
[2020-06-07] MEDS: CEFUROXIME INJ 1,500 MG in SYRINGE 1 EACH IV SCH (18:25)
[2020-06-07] MEDS: LACTATED RINGERS 250 ML IV PRN ×2 (19:20→19:36)
[2020-06-07] MEDS: CLORAZEPATE 3.75 MG TABLET PO PRN (20:02)
[2020-06-07 20:44] LABS: CKMB % 2.3 %
[2020-06-07 20:45] LABS: Troponin I 3.27 NG/ML (0.00-0.045)
[2020-06-07] MEDS: MORPHINE 10 MG/1 ML VIAL IV PRN (21:07)
[2020-06-07] MEDS ORDERED: FUROSEMIDE 40 MG/4 ML VIAL IV ONE (23:10)
[2020-06-08] MEDS: MORPHINE 4 MG/1 ML VIAL IV PRN ×4 (01:05→11:10)
[2020-06-08 03:51] LABS: ABG HCO3 25.3 MMOL/L (20-26); ABG PCO2 36.9 MM HG (35-48); ABG PH 7.438 (7.35-7.45); ABG TCO2 22.4 MMOL/L (23-27); Glucose Heart Surgery 224 MG/DL (74-106); Hematocrit Heart Surgery 33.3 PERCENT (42-52); Hemoglobin Heart Surgery 10.8 G/DL (14.0-18.0); Potassium Heart/CVR 4.5 MMOL/L (3.5-5.1)
[2020-06-08 04:06] LABS: Hematocrit 32.5 VOL% (42.0-52.0); Hemoglobin 10.6 GM/DL (14.0-18.0); Immature Granulocytes % 0.4 %; Immature Granulocytes Absolute 0.04 #; Lymphocytes # 0.7 10*3/uL (1.4-4.0); Lymphocytes % 7.5 % (21.2-54.2); Mean Corpuscular HGB Conc 32.6 GM/DL (32-36); Mean Corpuscular Volume 88.3 FL (87-102); Mean Platelet Volume 11.6 FL (9.6-12.0); Monocytes % 5.6 % (1.7-12.7); Neutrophils % 86.5 % (38.7-73.9); Platelet Count 175 T/CUMM (130-400); Red Blood Count 3.68 MC/CUMM (3.8-5.5); Red Cell Distribution Width 11.7 % (9.3-17.3); White Blood Count 9.9 T/CUMM (4-12)
[2020-06-08] MEDS: INSULIN REGULAR 100 UNIT/ML SUBCUT SCH ×6 (04:20→23:53)
[2020-06-08 04:25] LABS: Albumin 3.7 G/DL (3.4-5.0); Bilirubin,Direct 0.21 MG/DL (0.0-0.20); Bilirubin,Total 0.8 MG/DL (0.2-1.0); CKMB % 1.6 %; Osmolality,Calculated 285.5 MOS/KG (273-304); Potassium 4.6 MMOL/L (3.5-5.1)
[2020-06-08 04:27] LABS: Troponin I 3.48 NG/ML (0.00-0.045)
[2020-06-08] MEDS: KETOROLAC 30 MG/1 ML VIAL IV SCH ×4 (04:47→23:57)
[2020-06-08] MEDS: CEFUROXIME INJ 1,500 MG in SYRINGE 1 EACH IV SCH ×2 (06:40→18:04)
[2020-06-08] MEDS: NICOTINE 14 MG/24 HR PATCH TRANSDERM SCH (08:44)
[2020-06-08] MEDS: CHLORHEXIDINE 0.12% ORAL RINSE 60 ML BOTTLE SWISH/SPIT SCH ×2 (08:46→20:37)
[2020-06-08] MEDS: MORPHINE 10 MG/1 ML VIAL IV PRN (08:50)
[2020-06-08] MEDS: ASPIRIN EC 81 MG TABLET PO SCH (10:13)
[2020-06-08] MEDS: INSULIN GLARGINE 100 UNIT/ML SUBCUT SCH (10:14)
[2020-06-08 11:42] LABS: CKMB % 1.2 %; Troponin I 2.55 NG/ML (0.00-0.045)
[2020-06-08] MEDS: ASCORBIC ACID 500 MG TABLET PO SCH ×3 (12:00→20:51)
[2020-06-08] MEDS ORDERED: AZITHROMYCIN 250 MG TABLET PO SCH (12:00)
[2020-06-08] MEDS ORDERED: SODIUM CHLOR 0.45% KCL 20 MEQ 20 MEQ/1,000 ML BAG IV SCH (12:12)
[2020-06-08] MEDS ORDERED: GLUCAGON 1 MG VIAL IM PRN (12:12)
[2020-06-08] MEDS ORDERED: ACETAMINOPHEN 325 MG TABLET PO PRN (12:12)
[2020-06-08] MEDS ORDERED: ONDANSETRON 4 MG/2 ML VIAL IV PRN (12:12)
[2020-06-08] MEDS ORDERED: oxyCODONE/ACETAMINOPHEN 5-325 MG TABLET PO PRN (12:12)
[2020-06-08] MEDS ORDERED: MAGNESIUM SULF RIDER 4 GM in PREMIX 1 EACH IV PRN (12:12)
[2020-06-08] MEDS ORDERED: MAGNESIUM SULF RIDER 2 GM in PREMIX 1 EACH IV PRN (12:12)
[2020-06-08] MEDS ORDERED: ALUMINUM/MAGNES/SIMETH MAX STR 30 ML UDCUP PO PRN (12:12)
[2020-06-08] MEDS ORDERED: POTASSIUM CHLORIDE 20 MEQ TABLET PO PRN (12:12)
[2020-06-08] MEDS ORDERED: MAGNESIUM HYDROXIDE SUSP 30 ML UDCUP PO PRN (12:12)
[2020-06-08] MEDS ORDERED: DEXTROSE 50% 25 GM/50 ML VIAL IV PRN (12:12)
[2020-06-08] MEDS: SODIUM CHLORIDE 0.45% 1,000 ML IV SCH (16:14)
[2020-06-08] MEDS: INSULIN REGULAR DRIP 100 ML IV SCH (16:15)
[2020-06-08] MEDS: TICAGRELOR 90 MG TABLET PO SCH (20:37)
[2020-06-08] MEDS: ATORVASTATIN 40 MG TABLET PO SCH (20:37)
[2020-06-08] MEDS ORDERED: ROSUVASTATIN 20 MG TABLET PO SCH (21:00)
[2020-06-09] MEDS: INSULIN REGULAR 100 UNIT/ML SUBCUT SCH ×5 (03:40→21:44)
[2020-06-09] MEDS: KETOROLAC 30 MG/1 ML VIAL IV SCH ×4 (03:43→21:34)
[2020-06-09 04:09] LABS: Hemoglobin 9.5 GM/DL (14.0-18.0); Immature Granulocytes % 0.6 %; Immature Granulocytes Absolute 0.05 #; Lymphocytes % 12.1 % (21.2-54.2); Mean Corpuscular HGB Conc 32.8 GM/DL (32-36); Mean Corpuscular Volume 88.1 FL (87-102); Mean Platelet Volume 11.6 FL (9.6-12.0); Monocytes % 9.3 % (1.7-12.7); Platelet Count 167 T/CUMM (130-400); Red Blood Count 3.29 MC/CUMM (3.8-5.5); Red Cell Distribution Width 11.9 % (9.3-17.3); White Blood Count 8.6 T/CUMM (4-12)
[2020-06-09 04:25] LABS: Albumin 3.1 G/DL (3.4-5.0); Bilirubin,Direct 0.13 MG/DL (0.0-0.20); Bilirubin,Total 0.4 MG/DL (0.2-1.0); Calcium 7.8 MG/DL (8.5-10.1); Osmolality,Calculated 290.5 MOS/KG (273-304); Potassium 4.2 MMOL/L (3.5-5.1); Total Protein 5.9 G/DL (6.4-8.2)
[2020-06-09 04:28] LABS: Alanine Aminotransferase 44 U/L (16-61); Albumin 3.1 G/DL (3.4-5.0); Alkaline Phosphatase 57 U/L (45-117); Aspartate Amino Transferase 40 U/L (0-37); Bilirubin,Indirect 1.3 MG/DL (0.0-1.0); Total Protein 5.5 G/DL (6.4-8.2)
[2020-06-09 04:31] LABS: Lymphocytes 10 % (20-55); Segmented Neutrophils 87 % (50-85); Total Cells Counted 100
[2020-06-09 04:32] LABS: Hypochromasia 1+; Microcytosis Slight
[2020-06-09 04:33] LABS: Platelet Estimate Adequate
[2020-06-09] MEDS ORDERED: FUROSEMIDE 40 MG/4 ML VIAL IV ONE (06:00)
[2020-06-09] MEDS: ASCORBIC ACID 500 MG TABLET PO SCH ×3 (08:28→20:13)
[2020-06-09] MEDS: FERROUS SULFATE 325 MG TABLET PO SCH (09:32)
[2020-06-09] MEDS: ASPIRIN EC 81 MG TABLET PO SCH (09:32)
[2020-06-09] MEDS: DOCUSATE SODIUM 100 MG CAPSULE PO SCH (09:32)
[2020-06-09] MEDS: PANTOPRAZOLE 40 MG TABLET PO SCH (09:32)
[2020-06-09] MEDS: NICOTINE 14 MG/24 HR PATCH TRANSDERM SCH (09:32)
[2020-06-09] MEDS: INSULIN GLARGINE 100 UNIT/ML SUBCUT SCH (09:33)
[2020-06-09] MEDS: TICAGRELOR 90 MG TABLET PO SCH ×2 (09:33→20:13)
[2020-06-09] MEDS: CHLORHEXIDINE 0.12% ORAL RINSE 60 ML BOTTLE SWISH/SPIT SCH ×2 (09:41→21:35)
[2020-06-09] MEDS: METOPROLOL TARTRATE 25 MG TABLET PO SCH (20:12)
[2020-06-09] MEDS: ATORVASTATIN 40 MG TABLET PO SCH (20:13)
[2020-06-09] MEDS: ZALEPLON 5 MG CAPSULE PO PRN (20:16)
[2020-06-09] MEDS: CLORAZEPATE 3.75 MG TABLET PO PRN (23:00)
[2020-06-10 04:17] LABS: Basophils % 0.5 % (0.0-0.8); Eosinophils # 0.1 10*3/uL (0.0-0.87); Eosinophils % 1.1 % (0.00-10.9); Hematocrit 29.5 VOL% (42.0-52.0); Hemoglobin 9.4 GM/DL (14.0-18.0); Immature Granulocytes % 0.5 %; Immature Granulocytes Absolute 0.03 #; Lymphocytes % 29.6 % (21.2-54.2); Mean Corpuscular HGB Conc 31.9 GM/DL (32-36); Mean Corpuscular Volume 89.7 FL (87-102); Mean Platelet Volume 11.4 FL (9.6-12.0); Monocytes % 9.6 % (1.7-12.7); Neutrophils % 58.7 % (38.7-73.9); Platelet Count 173 T/CUMM (130-400); Red Blood Count 3.29 MC/CUMM (3.8-5.5); Red Cell Distribution Width 11.9 % (9.3-17.3); White Blood Count 6.7 T/CUMM (4-12)
[2020-06-10 04:26] LABS: Osmolality,Calculated 292.5 MOS/KG (273-304)
[2020-06-10 04:28] LABS: Alanine Aminotransferase 52 U/L (16-61); Albumin 2.8 G/DL (3.4-5.0); Alkaline Phosphatase 76 U/L (45-117); Aspartate Amino Transferase 35 U/L (0-37); Bilirubin,Direct < 0.100 MG/DL (0.0-0.20); Bilirubin,Total < 0.39 MG/DL (0.2-1.0); Blood Urea Nitrogen 33 MG/DL (7-18); Calcium 7.7 MG/DL (8.5-10.1); Carbon Dioxide 30 MMOL/L (21-32); Estimated Glom Filtration Rate 128 ML/MIN; Glucose 242 MG/DL (74-106); Osmolality,Calculated 293.4 MOS/KG (273-304); Potassium 4.1 MMOL/L (3.5-5.1); Sodium 140 MMOL/L (136-145); Total Protein 5.6 G/DL (6.4-8.2)
[2020-06-10] MEDS: KETOROLAC 30 MG/1 ML VIAL IV SCH ×4 (04:30→21:44)
[2020-06-10 04:45] LABS: Alanine Aminotransferase 48 U/L (16-61); Albumin 2.9 G/DL (3.4-5.0); Alkaline Phosphatase 81 U/L (45-117); Aspartate Amino Transferase 35 U/L (0-37); Bilirubin,Direct < 0.100 MG/DL (0.0-0.20); Bilirubin,Indirect 1.2 MG/DL (0.0-1.0); Total Protein 5.5 G/DL (6.4-8.2)
[2020-06-10] MEDS: INSULIN REGULAR 100 UNIT/ML SUBCUT SCH ×6 (05:36→21:44)
[2020-06-10] MEDS: LOSARTAN 25 MG TABLET PO SCH ×2 (10:09→21:43)
[2020-06-10] MEDS: NICOTINE 14 MG/24 HR PATCH TRANSDERM SCH (10:09)
[2020-06-10] MEDS: ASCORBIC ACID 500 MG TABLET PO SCH ×2 (10:09→21:43)
[2020-06-10] MEDS: METOPROLOL TARTRATE 25 MG TABLET PO SCH ×2 (10:10→21:43)
[2020-06-10] MEDS: FERROUS SULFATE 325 MG TABLET PO SCH (10:10)
[2020-06-10] MEDS: ASPIRIN EC 81 MG TABLET PO SCH (10:10)
[2020-06-10] MEDS: TICAGRELOR 90 MG TABLET PO SCH ×2 (10:10→21:43)
[2020-06-10] MEDS: PANTOPRAZOLE 40 MG TABLET PO SCH (10:10)
[2020-06-10] MEDS: DOCUSATE SODIUM 100 MG CAPSULE PO SCH (10:10)
[2020-06-10] MEDS: INSULIN GLARGINE 100 UNIT/ML SUBCUT SCH (10:35)
[2020-06-10] MEDS: CHLORHEXIDINE 0.12% ORAL RINSE 60 ML BOTTLE SWISH/SPIT SCH ×2 (10:35→21:44)
[2020-06-10] MEDS: CLORAZEPATE 3.75 MG TABLET PO PRN (21:43)
[2020-06-10] MEDS: ATORVASTATIN 40 MG TABLET PO SCH (21:44)
[2020-06-11 04:10] LABS: Basophils % 0.5 % (0.0-0.8); Eosinophils # 0.2 10*3/uL (0.0-0.87); Eosinophils % 3.9 % (0.00-10.9); Hematocrit 30.7 VOL% (42.0-52.0); Hemoglobin 9.8 GM/DL (14.0-18.0); Immature Granulocytes % 0.3 %; Immature Granulocytes Absolute 0.02 #; Lymphocytes % 33.4 % (21.2-54.2); Mean Corpuscular HGB Conc 31.9 GM/DL (32-36); Mean Corpuscular Volume 88.2 FL (87-102); Mean Platelet Volume 10.8 FL (9.6-12.0); Monocytes % 8.9 % (1.7-12.7); Platelet Count 197 T/CUMM (130-400); Red Blood Count 3.48 MC/CUMM (3.8-5.5); Red Cell Distribution Width 11.8 % (9.3-17.3); White Blood Count 5.9 T/CUMM (4-12)
[2020-06-11 04:25] LABS: Calcium 8.1 MG/DL (8.5-10.1); Osmolality,Calculated 284.5 MOS/KG (273-304); Potassium 4.3 MMOL/L (3.5-5.1)
[2020-06-11] MEDS: INSULIN REGULAR 100 UNIT/ML SUBCUT SCH ×6 (04:44→21:43)
[2020-06-11] MEDS: KETOROLAC 30 MG/1 ML VIAL IV SCH ×4 (04:45→21:31)
[2020-06-11] MEDS: LOSARTAN 25 MG TABLET PO SCH ×2 (09:30→21:30)
[2020-06-11] MEDS: TICAGRELOR 90 MG TABLET PO SCH ×2 (09:30→21:30)
[2020-06-11] MEDS: PANTOPRAZOLE 40 MG TABLET PO SCH (09:31)
[2020-06-11] MEDS: METOPROLOL TARTRATE 25 MG TABLET PO SCH ×2 (09:31→21:31)
[2020-06-11] MEDS: ASCORBIC ACID 500 MG TABLET PO SCH ×2 (09:31→21:30)
[2020-06-11] MEDS: FERROUS SULFATE 325 MG TABLET PO SCH (09:31)
[2020-06-11] MEDS: DOCUSATE SODIUM 100 MG CAPSULE PO SCH (09:31)
[2020-06-11] MEDS: ASPIRIN EC 81 MG TABLET PO SCH (09:32)
[2020-06-11] MEDS: NICOTINE 14 MG/24 HR PATCH TRANSDERM SCH (09:35)
[2020-06-11] MEDS: CHLORHEXIDINE 0.12% ORAL RINSE 60 ML BOTTLE SWISH/SPIT SCH ×2 (09:37→21:31)
[2020-06-11] MEDS: INSULIN GLARGINE 100 UNIT/ML SUBCUT SCH (09:37)
[2020-06-11] MEDS: ATORVASTATIN 40 MG TABLET PO SCH (21:30)
[2020-06-11] MEDS: ZALEPLON 5 MG CAPSULE PO PRN ×2 (21:43→23:37)
[2020-06-12] MEDS: INSULIN REGULAR 100 UNIT/ML SUBCUT SCH ×3 (01:09→09:33)
[2020-06-12] MEDS: KETOROLAC 30 MG/1 ML VIAL IV SCH ×2 (03:57→10:53)
[2020-06-12 05:19] LABS: Basophils % 0.6 % (0.0-0.8); Eosinophils # 0.4 10*3/uL (0.0-0.87); Eosinophils % 5.3 % (0.00-10.9); Hematocrit 31.1 VOL% (42.0-52.0); Hemoglobin 10.1 GM/DL (14.0-18.0); Immature Granulocytes % 1.7 %; Immature Granulocytes Absolute 0.11 #; Lymphocytes # 2.1 10*3/uL (1.4-4.0); Lymphocytes % 31.3 % (21.2-54.2); Mean Corpuscular HGB Conc 32.5 GM/DL (32-36); Mean Corpuscular Volume 88.4 FL (87-102); Mean Platelet Volume 10.7 FL (9.6-12.0); Monocytes % 9.9 % (1.7-12.7); Neutrophils % 51.2 % (38.7-73.9); Platelet Count 224 T/CUMM (130-400); Red Blood Count 3.52 MC/CUMM (3.8-5.5); Red Cell Distribution Width 11.8 % (9.3-17.3); White Blood Count 6.6 T/CUMM (4-12)
[2020-06-12 05:37] LABS: Alanine Aminotransferase 40 U/L (16-61); Albumin 2.8 G/DL (3.4-5.0); Alkaline Phosphatase 75 U/L (45-117); Aspartate Amino Transferase 17 U/L (0-37); Bilirubin,Direct < 0.100 MG/DL (0.0-0.20); Blood Urea Nitrogen 19 MG/DL (7-18); Calcium 8.1 MG/DL (8.5-10.1); Carbon Dioxide 29 MMOL/L (21-32); Estimated Glom Filtration Rate 126 ML/MIN; Glucose 188 MG/DL (74-106); Osmolality,Calculated 279.8 MOS/KG (273-304); Potassium 4.4 MMOL/L (3.5-5.1); Sodium 137 MMOL/L (136-145); Total Protein 5.6 G/DL (6.4-8.2)
[2020-06-12 05:39] LABS: Bilirubin,Indirect 0.5 MG/DL (0.0-1.0)
[2020-06-12 06:48] LABS: Reactive Lymphocytes 1+
[2020-06-12 06:49] LABS: Hypochromasia 1+; Platelet Estimate Normal; Polychromasia Few
[2020-06-12] MEDS ORDERED: INSULIN GLARGINE 100 UNIT/ML SUBCUT SCH (09:00)
[2020-06-12 09:15] VITALS: BP 152/98
[2020-06-12] MEDS: FERROUS SULFATE 325 MG TABLET PO SCH (09:29)
[2020-06-12] MEDS: ASCORBIC ACID 500 MG TABLET PO SCH (09:29)
[2020-06-12] MEDS: ASPIRIN EC 81 MG TABLET PO SCH (09:29)
[2020-06-12] MEDS: PANTOPRAZOLE 40 MG TABLET PO SCH (09:30)
[2020-06-12] MEDS: METOPROLOL TARTRATE 25 MG TABLET PO SCH (09:30)
[2020-06-12] MEDS: LOSARTAN 25 MG TABLET PO SCH (09:30)
[2020-06-12] MEDS: TICAGRELOR 90 MG TABLET PO SCH (09:30)
[2020-06-12] MEDS: DOCUSATE SODIUM 100 MG CAPSULE PO SCH (09:30)
[2020-06-12] MEDS: CHLORHEXIDINE 0.12% ORAL RINSE 60 ML BOTTLE SWISH/SPIT SCH (09:32)
[2020-06-12] MEDS: NICOTINE 14 MG/24 HR PATCH TRANSDERM SCH (10:54)
== END 2020-06-12 11:48 | disposition home health service (06) | DRG 231 ==
LOC: N.CL 17:37 → N.CC 19:39 → N.TELEN 06-04 14:00 → N.CVR 06-07 10:57 → N.ICU 06-07 21:58 → N.TELES 06-09 14:41
PROVIDERS: ADMIT Internal Medicine Cardiovascular Disease; ATTEND Internal Medicine Cardiovascular Disease

== ENCOUNTER 2020-06-29 02:21 | Observation (INO) ==
[2020-06-29] MEDS ORDERED: GLUCAGON 1 MG VIAL IM PRN ×2 (04:11)
[2020-06-29] MEDS ORDERED: ACETAMINOPHEN 325 MG TABLET PO PRN (04:11)
[2020-06-29] MEDS ORDERED: DEXTROSE 50% 25 GM/50 ML VIAL IV PRN ×2 (04:11)
[2020-06-29] MEDS: MORPHINE 4 MG/1 ML VIAL IV PRN ×3 (04:56→19:57)
[2020-06-29] MEDS: ONDANSETRON 4 MG/2 ML VIAL IV PRN ×3 (04:58→16:31)
[2020-06-29 06:53] LABS: Basophils # 0.1 10*3/uL (0.0-0.2); Eosinophils # 0.4 10*3/uL (0.0-0.87); Eosinophils % 5.4 % (0.00-10.9); Hematocrit 40.6 VOL% (42.0-52.0); Hemoglobin 12.7 GM/DL (14.0-18.0); Immature Granulocytes % 0.4 %; Immature Granulocytes Absolute 0.03 #; Lymphocytes # 2.2 10*3/uL (1.4-4.0); Lymphocytes % 31.9 % (21.2-54.2); Mean Corpuscular HGB Conc 31.3 GM/DL (32-36); Mean Corpuscular Volume 88.1 FL (87-102); Monocytes % 10.7 % (1.7-12.7); Neutrophils % 50.6 % (38.7-73.9); Platelet Count 247 T/CUMM (130-400); Red Blood Count 4.61 MC/CUMM (3.8-5.5); Red Cell Distribution Width 13.6 % (9.3-17.3); White Blood Count 6.8 T/CUMM (4-12)
[2020-06-29 07:12] LABS: Platelet Estimate Adequate
[2020-06-29 07:22] LABS: Alanine Aminotransferase 33 U/L (16-61); Albumin 3.5 G/DL (3.4-5.0); Alkaline Phosphatase 130 U/L (45-117); Aspartate Amino Transferase 22 U/L (0-37); Bilirubin,Total < 0.39 MG/DL (0.2-1.0); Blood Urea Nitrogen 19 MG/DL (7-18); Calcium 9.1 MG/DL (8.5-10.1); Carbon Dioxide 26 MMOL/L (21-32); Estimated Glom Filtration Rate 80 ML/MIN; Glucose 174 MG/DL (74-106); Osmolality,Calculated 280.7 MOS/KG (273-304); Potassium 4.3 MMOL/L (3.5-5.1); Sodium 138 MMOL/L (136-145); Total Protein 6.9 G/DL (6.4-8.2)
[2020-06-29] MEDS: TICAGRELOR 90 MG TABLET PO SCH ×2 (08:50→20:47)
[2020-06-29] MEDS: PANTOPRAZOLE 40 MG TABLET PO SCH (08:51)
[2020-06-29] MEDS: ENOXAPARIN 40 MG/0.4 ML SYRINGE SUBCUT SCH (08:51)
[2020-06-29] MEDS: INSULIN REGULAR 100 UNIT/ML SUBCUT SCH ×4 (08:52→21:00)
[2020-06-29] MEDS: PARoxetine 20 MG TABLET PO SCH (08:53)
[2020-06-29] MEDS ORDERED: LOSARTAN 25 MG TABLET PO SCH (09:00)
[2020-06-29] MEDS: ASPIRIN EC 81 MG TABLET PO SCH (10:45)
[2020-06-29] MEDS: METOPROLOL TARTRATE 25 MG TABLET PO SCH ×2 (10:45→20:47)
[2020-06-29] MEDS ORDERED: KETOROLAC 30 MG/1 ML VIAL IV ONE (11:53)
[2020-06-29] MEDS: SODIUM CHLORIDE 0.9% 1,000 ML IV SCH (20:48)
[2020-06-29] MEDS ORDERED: ATORVASTATIN 40 MG TABLET PO SCH (21:00)
[2020-06-30] MEDS: MORPHINE 4 MG/1 ML VIAL IV PRN ×2 (01:29→06:28)
[2020-06-30 05:34] LABS: Basophils # 0.1 10*3/uL (0.0-0.2); Basophils % 0.9 % (0.0-0.8); Eosinophils # 0.7 10*3/uL (0.0-0.87); Eosinophils % 12.7 % (0.00-10.9); Hematocrit 38.3 VOL% (42.0-52.0); Hemoglobin 12.2 GM/DL (14.0-18.0); Immature Granulocytes % 0.5 %; Immature Granulocytes Absolute 0.03 #; Lymphocytes # 1.9 10*3/uL (1.4-4.0); Lymphocytes % 34.3 % (21.2-54.2); Mean Corpuscular HGB Conc 31.9 GM/DL (32-36); Mean Corpuscular Volume 88.2 FL (87-102); Mean Platelet Volume 10.7 FL (9.6-12.0); Monocytes % 11.5 % (1.7-12.7); Neutrophils % 40.1 % (38.7-73.9); Platelet Count 213 T/CUMM (130-400); Red Blood Count 4.34 MC/CUMM (3.8-5.5); Red Cell Distribution Width 13.4 % (9.3-17.3); White Blood Count 5.6 T/CUMM (4-12)
[2020-06-30 05:54] LABS: Calcium 8.4 MG/DL (8.5-10.1); Osmolality,Calculated 286.5 MOS/KG (273-304); Potassium 4.4 MMOL/L (3.5-5.1)
[2020-06-30 06:00] LABS: Eosinophils 9 % (0-10); Hypochromasia 1+; Lymphocytes 32 % (20-55); Microcytosis 1+; Platelet Estimate Adequate; Segmented Neutrophils 44 % (50-85); Total Cells Counted 100
[2020-06-30] MEDS ORDERED: KETOROLAC 30 MG/1 ML VIAL IV ONE (07:39)
[2020-06-30] MEDS: INSULIN REGULAR 100 UNIT/ML SUBCUT SCH ×2 (08:40→11:07)
[2020-06-30] MEDS ORDERED: LOSARTAN 25 MG TABLET PO SCH (09:00)
[2020-06-30] MEDS: ENOXAPARIN 40 MG/0.4 ML SYRINGE SUBCUT SCH (09:15)
[2020-06-30] MEDS: PANTOPRAZOLE 40 MG TABLET PO SCH (09:16)
[2020-06-30] MEDS: METOPROLOL TARTRATE 25 MG TABLET PO SCH (09:16)
[2020-06-30] MEDS: TICAGRELOR 90 MG TABLET PO SCH (09:16)
[2020-06-30] MEDS: ASPIRIN EC 81 MG TABLET PO SCH (09:16)
[2020-06-30] MEDS: PARoxetine 20 MG TABLET PO SCH (09:16)
[2020-06-30] MEDS: SODIUM CHLORIDE 0.9% 1,000 ML IV SCH (09:22)
[2020-06-30] MEDS ORDERED: GLIMEPIRIDE 4 MG TABLET PO SCH (09:30)
[2020-06-30 11:20] VITALS: BP 102/68
== END 2020-06-30 15:30 | disposition home or self-care (01) ==
LOC: N.TELEN → SUATTDRO 03:40
PROVIDERS: ADMIT Internal Medicine; ATTEND Internal Medicine

== ENCOUNTER 2021-09-23 02:19 | Observation (INO) ==
[2021-09-23] MEDS ORDERED: NITROGLYCERIN SL 0.4 MG TABLET SL PRN (04:45)
[2021-09-23] MEDS ORDERED: ACETAMINOPHEN 325 MG TABLET PO PRN (04:45)
[2021-09-23] MEDS ORDERED: GLUCAGON 1 MG VIAL IM PRN (04:45)
[2021-09-23] MEDS ORDERED: MORPHINE 2 MG/1 ML SYRINGE IV PRN (04:45)
[2021-09-23] MEDS ORDERED: ONDANSETRON 4 MG/2 ML VIAL IV PRN (04:45)
[2021-09-23] MEDS ORDERED: POTASSIUM CHLORIDE 20 MEQ TABLET PO PRN ×2 (04:45)
[2021-09-23] MEDS ORDERED: SIMETHICONE CHEW 125 MG TABLET PO PRN (04:45)
[2021-09-23] MEDS ORDERED: hydrALAZINE 20 MG/1 ML VIAL IV PRN (04:45)
[2021-09-23] MEDS ORDERED: MAGNESIUM SULF RIDER 4 GM/100 ML PREMIX IV PRN (04:45)
[2021-09-23] MEDS ORDERED: MAGNESIUM SULF RIDER 2 GM/50 ML PREMIX IV PRN (04:45)
[2021-09-23] MEDS ORDERED: DEXTROSE 10% 250 ML BAG IV PRN (04:54)
[2021-09-23 05:19] LABS: Basophils # 0.1 10*3/uL (0.0-0.2); Basophils % 1.7 % (0.0-0.8); Eosinophils # 0.1 10*3/uL (0.0-0.87); Eosinophils % 1.9 % (0.00-10.9); Hematocrit 44.4 VOL% (42.0-52.0); Hemoglobin 14.8 GM/DL (14.0-18.0); Immature Granulocytes % 0.3 %; Immature Granulocytes Absolute 0.02 #; Lymphocytes # 2.2 10*3/uL (1.4-4.0); Lymphocytes % 38.3 % (21.2-54.2); Mean Corpuscular HGB Conc 33.3 GM/DL (32-36); Mean Corpuscular Volume 87.7 FL (87-102); Mean Platelet Volume 9.7 FL (9.6-12.0); Monocytes # 0.7 10*3/uL (0.11-0.8); Monocytes % 12.3 % (1.7-12.7); Neutrophils % 45.5 % (38.7-73.9); Platelet Count 168 T/CUMM (130-400); Red Blood Count 5.06 MC/CUMM (3.8-5.5); Red Cell Distribution Width 13.4 % (9.3-17.3); White Blood Count 5.9 T/CUMM (4-12)
[2021-09-23] MEDS ORDERED: NITROGLYCERIN 2% OINT 1 INCH/GM PACK TOP ONE ×2 (05:32→05:35)
[2021-09-23] MEDS ORDERED: MORPHINE 2 MG/1 ML SYRINGE IV ONE ×2 (05:33→05:34)
[2021-09-23 05:51] LABS: Albumin 3.6 G/DL (3.4-5.0); Bilirubin,Total 0.5 MG/DL (0.20-1.00); Calcium 8.6 MG/DL (8.5-10.1); Osmolality,Calculated 285.3 MOS/KG (273-304); Potassium 4.2 MMOL/L (3.5-5.1); Risk Ratio 5.29; Thyroid Stimulating Hormone 4.62 uIU/ml (0.358-3.74); VLDL Cholesterol 80.6 MG/DL
[2021-09-23 07:59] LABS: INR 0.9; PT Patient Result 10.3 SECS (10.5-12.0); Partial Thromboplastin Time 36.6 SECS (23.7-32.9)
[2021-09-23] MEDS: INSULIN REGULAR 100 UNIT/ML SUBCUT SCH ×5 (08:12→22:15)
[2021-09-23] MEDS: PANTOPRAZOLE 40 MG TABLET PO SCH (08:32)
[2021-09-23] MEDS: ASPIRIN EC 81 MG TABLET PO SCH (08:32)
[2021-09-23] MEDS: TICAGRELOR 90 MG TABLET PO SCH ×2 (08:32→20:14)
[2021-09-23] MEDS: FENOFIBRATE 145 MG TABLET PO SCH (08:32)
[2021-09-23] MEDS ORDERED: diphenhydrAMINE CAP 25 MG CAPSULE PO ONE (09:28)
[2021-09-23] MEDS ORDERED: DIAZEPAM 5 MG TABLET PO ONE (09:28)
[2021-09-23] MEDS ORDERED: SODIUM CHLORIDE 0.9% 1,000 ML IV SCH (09:30)
[2021-09-23] MEDS: METOPROLOL TARTRATE 25 MG TABLET PO SCH ×2 (10:05→20:14)
[2021-09-23] MEDS ORDERED: MIDAZOLAM 2 MG/2 ML VIAL ONE ×2 (12:18→12:41)
[2021-09-23] MEDS ORDERED: fentaNYL 100 MCG/2 ML VIAL ONE (12:19)
[2021-09-23] MEDS ORDERED: BIVALIRUDIN 250 MG VIAL IV ONE (13:00)
[2021-09-23] MEDS ORDERED: TICAGRELOR 90 MG TABLET ONE (13:22)
[2021-09-23] MEDS: ENOXAPARIN 100 MG/ML SYRINGE SUBCUT SCH (14:23)
[2021-09-23] MEDS ORDERED: ATORVASTATIN 80 MG TABLET PO SCH (21:00)
[2021-09-24] MEDS: ENOXAPARIN 100 MG/ML SYRINGE SUBCUT SCH (03:32)
[2021-09-24 05:50] LABS: Basophils # 0.1 10*3/uL (0.0-0.2); Basophils % 1.6 % (0.0-0.8); Eosinophils # 0.2 10*3/uL (0.0-0.87); Eosinophils % 5.1 % (0.00-10.9); Hematocrit 39.6 VOL% (42.0-52.0); Hemoglobin 13.3 GM/DL (14.0-18.0); Immature Granulocytes % 0.5 %; Immature Granulocytes Absolute 0.02 #; Lymphocytes # 1.5 10*3/uL (1.4-4.0); Mean Corpuscular HGB Conc 33.6 GM/DL (32-36); Mean Corpuscular Volume 88.8 FL (87-102); Mean Platelet Volume 10.1 FL (9.6-12.0); Monocytes # 0.5 10*3/uL (0.11-0.8); Monocytes % 11.9 % (1.7-12.7); Neutrophils % 46.9 % (38.7-73.9); Platelet Count 142 T/CUMM (130-400); Red Blood Count 4.46 MC/CUMM (3.8-5.5); White Blood Count 4.3 T/CUMM (4-12)
[2021-09-24 06:09] LABS: Calcium 7.6 MG/DL (8.5-10.1); Osmolality,Calculated 285.5 MOS/KG (273-304); Potassium 3.9 MMOL/L (3.5-5.1)
[2021-09-24 06:11] LABS: Platelet Estimate Normal
[2021-09-24] MEDS: FENOFIBRATE 145 MG TABLET PO SCH (08:13)
[2021-09-24] MEDS: INSULIN REGULAR 100 UNIT/ML SUBCUT SCH ×2 (08:13→11:59)
[2021-09-24] MEDS: ASPIRIN EC 81 MG TABLET PO SCH (08:13)
[2021-09-24] MEDS: PANTOPRAZOLE 40 MG TABLET PO SCH (08:13)
[2021-09-24] MEDS: METOPROLOL TARTRATE 25 MG TABLET PO SCH (08:14)
[2021-09-24] MEDS: TICAGRELOR 90 MG TABLET PO SCH (08:14)
[2021-09-24 08:27] VITALS: BP 168/96
[2021-09-24] MEDS ORDERED: ASPIRIN EC 325 MG TABLET PO SCH (09:00)
[2021-09-24] MEDS ORDERED: LOSARTAN 25 MG TABLET PO SCH (10:01)
== END 2021-09-24 12:10 | disposition home or self-care (01) ==
LOC: N.TELES → SUATTDRO 03:57
PROVIDERS: ADMIT Internal Medicine; ATTEND Internal Medicine

== ENCOUNTER 2021-10-04 15:27 | Observation (INO) ==
[2021-10-04 16:30] LABS: Basophils # 0.1 10*3/uL (0.0-0.2); Eosinophils # 0.1 10*3/uL (0.0-0.87); Eosinophils % 1.5 % (0.00-10.9); Hematocrit 44.8 VOL% (42.0-52.0); Immature Granulocytes % 0.5 %; Immature Granulocytes Absolute 0.03 #; Lymphocytes # 1.8 10*3/uL (1.4-4.0); Lymphocytes % 28.9 % (21.2-54.2); Mean Corpuscular HGB Conc 33.5 GM/DL (32-36); Mean Corpuscular Volume 87.2 FL (87-102); Mean Platelet Volume 10.6 FL (9.6-12.0); Monocytes # 0.7 10*3/uL (0.11-0.8); Monocytes % 11.9 % (1.7-12.7); Neutrophils % 56.2 % (38.7-73.9); Platelet Count 200 T/CUMM (130-400); Red Blood Count 5.14 MC/CUMM (3.8-5.5); Red Cell Distribution Width 13.7 % (9.3-17.3); White Blood Count 6.2 T/CUMM (4-12)
[2021-10-04 16:41] LABS: Albumin 4.1 G/DL (3.4-5.0); Bilirubin,Total 0.4 MG/DL (0.20-1.00); Osmolality,Calculated 286.3 MOS/KG (273-304); Potassium 3.8 MMOL/L (3.5-5.1); Total Protein 7.3 G/DL (6.4-8.2)
[2021-10-04] MEDS ORDERED: ONDANSETRON 4 MG/2 ML VIAL IV PRN (17:16)
[2021-10-04] MEDS ORDERED: GLUCAGON 1 MG VIAL IM PRN (17:16)
[2021-10-04] MEDS ORDERED: ACETAMINOPHEN 325 MG TABLET PO PRN (17:16)
[2021-10-04] MEDS ORDERED: DEXTROSE 10% 250 ML BAG IV PRN (17:20)
[2021-10-04] MEDS ORDERED: MORPHINE 2 MG/1 ML SYRINGE IV STA (17:41)
[2021-10-04] MEDS: SODIUM CHLORIDE 0.9% 1,000 ML IV SCH (18:30)
[2021-10-04] MEDS: NITROGLYCERIN SL 0.4 MG TABLET SL PRN ×3 (20:54→21:24)
[2021-10-04] MEDS ORDERED: ENOXAPARIN 40 MG/0.4 ML SYRINGE SUBCUT SCH (21:00)
[2021-10-04] MEDS: INSULIN REGULAR 100 UNIT/ML SUBCUT SCH (21:31)
[2021-10-04] MEDS: MORPHINE 2 MG/1 ML SYRINGE IV PRN (22:10)
[2021-10-05] MEDS: MORPHINE 2 MG/1 ML SYRINGE IV PRN ×3 (00:40→16:01)
[2021-10-05 05:42] LABS: Basophils # 0.1 10*3/uL (0.0-0.2); Basophils % 1.8 % (0.0-0.8); Eosinophils # 0.1 10*3/uL (0.0-0.87); Eosinophils % 3.5 % (0.00-10.9); Hematocrit 39.7 VOL% (42.0-52.0); Hemoglobin 13.2 GM/DL (14.0-18.0); Immature Granulocytes % 0.5 %; Immature Granulocytes Absolute 0.02 #; Lymphocytes # 1.6 10*3/uL (1.4-4.0); Lymphocytes % 40.1 % (21.2-54.2); Mean Corpuscular HGB Conc 33.2 GM/DL (32-36); Mean Platelet Volume 10.2 FL (9.6-12.0); Monocytes # 0.5 10*3/uL (0.11-0.8); Monocytes % 12.6 % (1.7-12.7); Neutrophils % 41.5 % (38.7-73.9); Platelet Count 143 T/CUMM (130-400); Red Blood Count 4.46 MC/CUMM (3.8-5.5); Red Cell Distribution Width 13.8 % (9.3-17.3)
[2021-10-05 06:04] LABS: Albumin 3.4 G/DL (3.4-5.0); Bilirubin,Total 0.5 MG/DL (0.20-1.00); Osmolality,Calculated 289.8 MOS/KG (273-304); Potassium 3.6 MMOL/L (3.5-5.1); Total Protein 6.1 G/DL (6.4-8.2)
[2021-10-05] MEDS ORDERED: NITROGLYCERIN SL 0.4 MG TABLET SL PRN (07:28)
[2021-10-05] MEDS: KETOROLAC 30 MG/1 ML VIAL IV SCH ×2 (07:54→14:00)
[2021-10-05] MEDS: INSULIN REGULAR 100 UNIT/ML SUBCUT SCH ×3 (08:55→17:06)
[2021-10-05] MEDS ORDERED: METOPROLOL TARTRATE 25 MG TABLET PO SCH (09:00)
[2021-10-05] MEDS ORDERED: ISOSORBIDE MONONITRATE 60 MG TABLET PO SCH (09:00)
[2021-10-05] MEDS ORDERED: ASPIRIN EC 81 MG TABLET PO SCH (09:00)
[2021-10-05] MEDS ORDERED: PANTOPRAZOLE 40 MG TABLET PO SCH ×2 (09:00)
[2021-10-05] MEDS ORDERED: LOSARTAN 25 MG TABLET PO SCH (09:00)
[2021-10-05] MEDS ORDERED: TICAGRELOR 90 MG TABLET PO SCH (09:00)
[2021-10-05] MEDS ORDERED: FENOFIBRATE 145 MG TABLET PO SCH (09:00)
[2021-10-05] MEDS: SODIUM CHLORIDE 0.9% 1,000 ML IV SCH (09:23)
[2021-10-05 17:00] VITALS: BP 160/93
[2021-10-05] MEDS ORDERED: ATORVASTATIN 80 MG TABLET PO SCH (21:00)
== END 2021-10-05 18:05 | disposition home or self-care (01) ==
LOC: N.ED 15:27 → N.EDINP 15:27 → N.TELES 21:00
PROVIDERS: ADMIT Internal Medicine; ATTEND Internal Medicine

== ENCOUNTER 2022-01-18 07:18 | Inpatient (IN) ==
[2022-01-18] MEDS ORDERED: ASPIRIN 325 MG TABLET PO STA (07:43)
[2022-01-18] MEDS ORDERED: ENOXAPARIN 100 MG/ML SYRINGE SUBCUT STA (07:43)
[2022-01-18] MEDS ORDERED: ONDANSETRON 4 MG/2 ML VIAL IV STA (07:43)
[2022-01-18] MEDS ORDERED: HYDROmorphone 1 MG/1 ML SYRINGE IV STA (07:43)
[2022-01-18] MEDS ORDERED: CLOPIDOGREL 75 MG TABLET PO STA (07:43)
[2022-01-18] MEDS ORDERED: LABETALOL 20 MG/4 ML SYRINGE IV ONE (08:45)
[2022-01-18 08:52] LABS: Basophils # 0.1 10*3/uL (0.0-0.2); Basophils % 1.1 % (0.0-0.8); Eosinophils # 0.1 10*3/uL (0.0-0.87); Eosinophils % 1.7 % (0.00-10.9); Hematocrit 47.2 VOL% (42.0-52.0); Hemoglobin 16.1 GM/DL (14.0-18.0); Immature Granulocytes % 0.6 %; Immature Granulocytes Absolute 0.04 #; Lymphocytes # 1.6 10*3/uL (1.4-4.0); Lymphocytes % 24.8 % (21.2-54.2); Mean Corpuscular HGB Conc 34.1 GM/DL (32-36); Mean Corpuscular Volume 84.1 FL (87-102); Mean Platelet Volume 11.2 FL (9.6-12.0); Monocytes # 0.6 10*3/uL (0.11-0.8); Monocytes % 9.4 % (1.7-12.7); Neutrophils % 62.4 % (38.7-73.9); Platelet Count 184 T/CUMM (130-400); Red Blood Count 5.61 MC/CUMM (3.8-5.5); Red Cell Distribution Width 13.9 % (9.3-17.3); White Blood Count 6.5 T/CUMM (4-12)
[2022-01-18] MEDS ORDERED: LABETALOL 20 MG/4 ML SYRINGE IV STA (08:52)
[2022-01-18 09:25] LABS: Albumin 4.3 G/DL (3.4-5.0); Bilirubin,Total 0.7 MG/DL (0.20-1.00); Calcium 9.6 MG/DL (8.5-10.1); Potassium 3.9 MMOL/L (3.5-5.1); Total Protein 7.4 G/DL (6.4-8.2)
[2022-01-18] MEDS ORDERED: hydrALAZINE 20 MG/1 ML VIAL IV PRN (10:20)
[2022-01-18] MEDS ORDERED: ACETAMINOPHEN 325 MG TABLET PO PRN (10:20)
[2022-01-18] MEDS ORDERED: DOCUSATE SODIUM 100 MG CAPSULE PO PRN (10:20)
[2022-01-18] MEDS ORDERED: niCARdipine INJ 25 MG in SODIUM CHLORIDE 0.9% 240 ML IV PRN (10:59)
[2022-01-18] MEDS ORDERED: niCARdipine 25 MG/10 ML VIAL IV ONE (11:06)
[2022-01-18 11:09] LABS: Risk Ratio 10.48; VLDL Cholesterol 252.4 MG/DL
[2022-01-18] MEDS: MORPHINE 2 MG/1 ML SYRINGE IV PRN ×4 (11:14→23:32)
[2022-01-18] MEDS: LOSARTAN 50 MG TABLET PO SCH (12:13)
[2022-01-18] MEDS: ENOXAPARIN 40 MG/0.4 ML SYRINGE SUBCUT SCH (12:13)
[2022-01-18] MEDS ORDERED: GLUCAGON 1 MG VIAL IM PRN (13:54)
[2022-01-18] MEDS ORDERED: DEXTROSE 10% 250 ML BAG IV PRN (14:15)
[2022-01-18] MEDS: ONDANSETRON 4 MG/2 ML VIAL IV PRN (17:30)
[2022-01-18] MEDS: INSULIN LISPRO 100 UNIT/ML SUBCUT SCH ×2 (17:35→22:58)
[2022-01-18] MEDS ORDERED: NIFEdipine 10 MG CAPSULE PO PRN (17:56)
[2022-01-18] MEDS: METOPROLOL TARTRATE 25 MG TABLET PO SCH (20:20)
[2022-01-18] MEDS: ATORVASTATIN 80 MG TABLET PO SCH (20:20)
[2022-01-18] MEDS: traZODone 50 MG TABLET PO SCH (20:20)
[2022-01-18] MEDS: GLIMEPIRIDE 4 MG TABLET PO SCH (21:00)
[2022-01-18] MEDS: TICAGRELOR 90 MG TABLET PO SCH (22:58)
[2022-01-19] MEDS: MORPHINE 2 MG/1 ML SYRINGE IV PRN ×5 (04:08→22:54)
[2022-01-19] MEDS: ONDANSETRON 4 MG/2 ML VIAL IV PRN ×3 (06:03→20:42)
[2022-01-19 06:22] LABS: Basophils # 0.1 10*3/uL (0.0-0.2); Basophils % 1.5 % (0.0-0.8); Eosinophils # 0.3 10*3/uL (0.0-0.87); Eosinophils % 6.3 % (0.00-10.9); Immature Granulocytes % 0.5 %; Immature Granulocytes Absolute 0.02 #; Lymphocytes # 1.6 10*3/uL (1.4-4.0); Lymphocytes % 38.8 % (21.2-54.2); Mean Corpuscular HGB Conc 33.3 GM/DL (32-36); Monocytes # 0.6 10*3/uL (0.11-0.8); Neutrophils % 37.9 % (38.7-73.9); Platelet Count 161 T/CUMM (130-400); Red Blood Count 5.17 MC/CUMM (3.8-5.5); Red Cell Distribution Width 14.3 % (9.3-17.3)
[2022-01-19 06:43] LABS: Eosinophils 9 % (0-10); Lymphocytes 41 % (20-55); Total Cells Counted 100
[2022-01-19 06:44] LABS: Platelet Estimate Adequate
[2022-01-19 06:47] LABS: Calcium 8.5 MG/DL (8.5-10.1); Osmolality,Calculated 283.2 MOS/KG (273-304)
[2022-01-19] MEDS: INSULIN LISPRO 100 UNIT/ML SUBCUT SCH ×4 (07:50→20:41)
[2022-01-19] MEDS: PANTOPRAZOLE 40 MG TABLET PO SCH (08:21)
[2022-01-19] MEDS: METOPROLOL TARTRATE 25 MG TABLET PO SCH ×2 (08:21→20:43)
[2022-01-19] MEDS: LOSARTAN 50 MG TABLET PO SCH (08:21)
[2022-01-19] MEDS: ASPIRIN EC 81 MG TABLET PO SCH (08:21)
[2022-01-19] MEDS: FENOFIBRATE 145 MG TABLET PO SCH (08:21)
[2022-01-19] MEDS: ISOSORBIDE MONONITRATE 60 MG TABLET PO SCH (08:21)
[2022-01-19] MEDS: DULoxetine 30 MG CAPSULE PO SCH (08:22)
[2022-01-19] MEDS: ENOXAPARIN 40 MG/0.4 ML SYRINGE SUBCUT SCH (10:40)
[2022-01-19] MEDS: DAPAGLIFLOZIN 10 MG TABLET PO SCH (10:41)
[2022-01-19] MEDS: GLIMEPIRIDE 4 MG TABLET PO SCH ×2 (10:41→20:43)
[2022-01-19] MEDS: TICAGRELOR 90 MG TABLET PO SCH ×2 (10:41→20:43)
[2022-01-19 11:15] LABS: Barbiturates Screen,Urine Negative (Negative); Benzodiazepines Screen,Urine Negative (Negative); Cannabinoid Screen,Urine Negative (Negative); Opiate Screen,Urine Positive (Negative); Phencyclidine Screen,Urine Negative (Negative)
[2022-01-19] MEDS: KETOROLAC 15 MG/1 ML VIAL IV SCH ×3 (11:46→22:53)
[2022-01-19] MEDS: SODIUM CHLORIDE 0.9% 1,000 ML IV SCH ×2 (13:49→22:52)
[2022-01-19] MEDS: INSULIN GLARGINE 100 UNIT/ML SUBCUT SCH ×2 (20:42)
[2022-01-19] MEDS: ATORVASTATIN 80 MG TABLET PO SCH (20:43)
[2022-01-19] MEDS: traZODone 50 MG TABLET PO SCH (20:43)
[2022-01-19] MEDS: ZALEPLON 5 MG CAPSULE PO PRN (20:44)
[2022-01-20 04:54] LABS: Calcium 8.2 MG/DL (8.5-10.1); Osmolality,Calculated 288.5 MOS/KG (273-304); Potassium 4.1 MMOL/L (3.5-5.1)
[2022-01-20] MEDS: KETOROLAC 15 MG/1 ML VIAL IV SCH (06:04)
[2022-01-20] MEDS: FENOFIBRATE 145 MG TABLET PO SCH (08:05)
[2022-01-20] MEDS: DAPAGLIFLOZIN 10 MG TABLET PO SCH (08:05)
[2022-01-20] MEDS: MORPHINE 2 MG/1 ML SYRINGE IV PRN ×4 (08:05→22:34)
[2022-01-20] MEDS: INSULIN LISPRO 100 UNIT/ML SUBCUT SCH ×4 (08:05→20:45)
[2022-01-20] MEDS: TICAGRELOR 90 MG TABLET PO SCH ×2 (08:06→20:30)
[2022-01-20] MEDS: ISOSORBIDE MONONITRATE 60 MG TABLET PO SCH (08:06)
[2022-01-20] MEDS: GLIMEPIRIDE 4 MG TABLET PO SCH ×2 (08:06→20:30)
[2022-01-20] MEDS: LOSARTAN 50 MG TABLET PO SCH (08:06)
[2022-01-20] MEDS: PANTOPRAZOLE 40 MG TABLET PO SCH (08:06)
[2022-01-20] MEDS: ASPIRIN EC 81 MG TABLET PO SCH (08:06)
[2022-01-20] MEDS: DULoxetine 30 MG CAPSULE PO SCH (08:06)
[2022-01-20] MEDS: METOPROLOL TARTRATE 25 MG TABLET PO SCH ×2 (08:06→20:31)
[2022-01-20] MEDS: SODIUM CHLORIDE 0.9% 1,000 ML IV SCH ×3 (08:08→18:24)
[2022-01-20] MEDS ORDERED: DIAZEPAM 5 MG TABLET PO ONE (08:16)
[2022-01-20] MEDS ORDERED: diphenhydrAMINE CAP 25 MG CAPSULE PO ONE (08:16)
[2022-01-20] MEDS: ENOXAPARIN 40 MG/0.4 ML SYRINGE SUBCUT SCH (09:31)
[2022-01-20] MEDS ORDERED: MIDAZOLAM 2 MG/2 ML VIAL ONE ×2 (11:53→12:03)
[2022-01-20] MEDS ORDERED: fentaNYL 100 MCG/2 ML VIAL ONE (11:53)
[2022-01-20] MEDS ORDERED: ceFAZolin 1,000 MG VIAL ONE (12:15)
[2022-01-20] MEDS: traZODone 50 MG TABLET PO SCH (20:30)
[2022-01-20] MEDS: ATORVASTATIN 80 MG TABLET PO SCH (20:31)
[2022-01-20] MEDS: ZALEPLON 5 MG CAPSULE PO PRN (20:46)
[2022-01-20] MEDS: INSULIN GLARGINE 100 UNIT/ML SUBCUT SCH (20:47)
[2022-01-20 20:57] VITALS: BP 128/78
[2022-01-21 04:10] LABS: Eosinophils # 0.3 10*3/uL (0.0-0.87); Eosinophils % 8.2 % (0.00-10.9); Hematocrit 40.7 VOL% (42.0-52.0); Hemoglobin 13.9 GM/DL (14.0-18.0); Immature Granulocytes % 0.8 %; Immature Granulocytes Absolute 0.03 #; Lymphocytes # 1.2 10*3/uL (1.4-4.0); Lymphocytes % 30.9 % (21.2-54.2); Mean Corpuscular HGB Conc 34.2 GM/DL (32-36); Mean Corpuscular Volume 87.3 FL (87-102); Mean Platelet Volume 11.3 FL (9.6-12.0); Monocytes # 0.5 10*3/uL (0.11-0.8); Monocytes % 12.1 % (1.7-12.7); Platelet Count 144 T/CUMM (130-400); Red Blood Count 4.66 MC/CUMM (3.8-5.5); Red Cell Distribution Width 14.2 % (9.3-17.3); White Blood Count 3.9 T/CUMM (4-12)
[2022-01-21] MEDS: MORPHINE 2 MG/1 ML SYRINGE IV PRN ×2 (04:15→08:39)
[2022-01-21 04:25] LABS: Calcium 7.6 MG/DL (8.5-10.1); Osmolality,Calculated 287.5 MOS/KG (273-304); Potassium 3.9 MMOL/L (3.5-5.1)
[2022-01-21] MEDS: SODIUM CHLORIDE 0.9% 1,000 ML IV SCH (04:48)
[2022-01-21] MEDS: INSULIN LISPRO 100 UNIT/ML SUBCUT SCH (08:41)
[2022-01-21] MEDS: DULoxetine 30 MG CAPSULE PO SCH (08:41)
[2022-01-21] MEDS: METOPROLOL TARTRATE 25 MG TABLET PO SCH (08:42)
[2022-01-21] MEDS: TICAGRELOR 90 MG TABLET PO SCH (08:42)
[2022-01-21] MEDS: FENOFIBRATE 145 MG TABLET PO SCH (08:42)
[2022-01-21] MEDS: DAPAGLIFLOZIN 10 MG TABLET PO SCH (08:42)
[2022-01-21] MEDS: PANTOPRAZOLE 40 MG TABLET PO SCH (08:42)
[2022-01-21] MEDS: ISOSORBIDE MONONITRATE 60 MG TABLET PO SCH (08:42)
[2022-01-21] MEDS: GLIMEPIRIDE 4 MG TABLET PO SCH (08:42)
[2022-01-21] MEDS: ASPIRIN EC 81 MG TABLET PO SCH (08:42)
[2022-01-21] MEDS ORDERED: LOSARTAN 25 MG TABLET PO SCH (09:00)
[2022-01-21] MEDS: ENOXAPARIN 40 MG/0.4 ML SYRINGE SUBCUT SCH (09:33)
== END 2022-01-21 10:57 | disposition home or self-care (01) | DRG 287 ==
LOC: N.ED 07:18 → N.EDINP 10:20 → SUATTDRO 10:20 → N.CC 20:48
PROVIDERS: ADMIT Internal Medicine; ATTEND Internal Medicine